=== PATIENT | female | born 1990 | race Caucasian/White ===

== ENCOUNTER 2016-09-21 05:39 | Emergency (ER) | payer MEDICAID ==
[~2016-09-21] VITALS: Ht 165.1 cm; Wt 65.0 kg
[~2016-09-21 05:39] MED LIST: ASCO500C PO; FISH100020 PO; FOLI1 PO; PRENCAP6 PO; VITA10004 PO
[2016-09-21 05:42] VITALS: BP 123/73; PULSE 91; RESP 16; TEMP 97.9; O2SAT 100
[2016-09-21] MEDS ORDERED: SODIUM CHLOR 0.9% 1000 ML INJ 1,000 ML IV SCH (06:27)
[2016-09-21] MEDS ORDERED: SODIUM CHLORIDE 0.9% FLUSH 5 ML FLUSH IVF PRN (06:30)
[2016-09-21] MEDS ORDERED: MORPHINE SULFATE 4 MG/ML INJ IV PUSH ONE (06:30)
[2016-09-21] MEDS ORDERED: ONDANSETRON HCL 4 MG/2 ML VIAL IVP ONE (06:30)
--- NOTE | 2016-09-21 06:37 | PD ---
HPI Chief Complaint: Abdominal Pain Time Seen by Provider: 06:24 Travel History International Travel<30 days: No Contact w/Intl Traveler<30days: No Traveled to known affect area: No History of Present Illness HPI 26-year-old female with history of bilateral fallopian tube coils for sterilization placed in July 2016, here for evaluation of right lower quadrant abdominal pain and vaginal bleeding stating that she is passing grape- sized clots. Symptoms started this morning. Right lower quadrant abdominal pain is sharp/achy, constant, moderate, worse with movement and palpation. No history of abdominal surgeries. No vaginal discharge of the bleeding. No urinary symptoms. No fevers or chills. 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) Medical other: Yes (MTHFR (gene mutation)) Tetanus Vaccination: Unknown Influenza Vaccination: Yes ?: Not LMP: 08/31/2015 : 11 Para: 2 Miscarriage: 9 Past Surgical History Gynecologic Surgery: Yes (coils in falopian tubes) Social History Alcohol Use: Yes (occasionally) Tobacco Use: Yes (2 cigarettes per day) Substance Use: No Allergies-Medications (Allergen,Severity, Reaction): Coded Allergies: Codeine (Verified Allergy, Unknown, 02/27/16) Reported Meds & Prescriptions Reported Meds & Active Scripts Active Reported Vitamin C (Ascorbic Acid) 500 Mg Cap 500 Mg PO DAILY Fish Oil (Humble-3 Fatty Acids) 1,000 Mg Cap 1,000 Mg PO DAILY Folate 1 Mg Tab (Folic Acid) 1 Mg Tab 1 Mg PO DAILY Vitamin B-12 Cr (Cyanocobalamin) 1 000 Tab 1 Tab PO DAILY 1 ( Multivitamins) Cap 1 Cap PO DAILY Review of Systems Except as stated in HPI: all other systems reviewed are Neg Physical Exam Narrative GENERAL: Well-developed, well-nourished, no acute distress. SKIN: Warm and dry. No rash. HEAD: Atraumatic. Normocephalic. EYES: Pupils equal and round. No scleral icterus. No injection or drainage. ENT: Mucous membranes pink and moist. NECK: Trachea midline. No JVD. CARDIOVASCULAR: Regular rate and rhythm. RESPIRATORY: No accessory muscle use. Clear to auscultation. Breath sounds equal bilaterally. GASTROINTESTINAL: Abdomen soft, nondistended. Moderate right lower quadrant tenderness without rebound or guarding. Mild suprapubic and left lower quadrant tenderness without peritoneal signs. Rest of abdomen is soft and nontender. AUDIO TECHNICIAN: Exam performed in the presence of female nurse. Normal external genitalia. Scant whitish vaginal discharge that is [id number]. Normal cervix. Moderate right adnexal tenderness without masses. Moderate uterine tenderness. No CMT. No left adnexal masses or tenderness. MUSCULOSKELETAL: No obvious deformities. No clubbing. No cyanosis. No edema. NEUROLOGICAL: Awake and alert. No obvious cranial nerve deficits. Motor grossly within normal limits. Normal speech. PSYCHIATRIC: Appropriate mood and affect; insight and judgment normal. Data Data Last Documented VS Vital Signs Date Time Temp Pulse Resp B/P Pulse Ox O2 Delivery O2 Flow Rate FiO2 09/21/16 05:42 97.9 91 16 123/73 100 Room Air Orders Beta Hcg (Quant/Titer) (09/21/16 06:27) Complete Blood Count With Diff (09/21/16 06:27) Comprehensive Metabolic Panel (09/21/16 06:27) Prothrombin Time / Inr (Pt) (09/21/16 06:27) Act Partial Throm Time (Ptt) (09/21/16 06:27) Urinalysis - C+S If Indicated (09/21/16 06:27) Ct Abd/Pel W Iv Contrast(Rout) (09/21/16 06:27) Iv Access Insert/Monitor (09/21/16 06:27) Ecg Monitoring (09/21/16 06:27) Oximetry (09/21/16 06:27) Morphine Inj (Morphine Inj) (09/21/16 06:30) Ondansetron Inj (Zofran Inj) (09/21/16 06:30) Sodium Chlor 0.9% 1000 Ml Inj (Ns 1000 M (09/21/16 06:27) Sodium Chloride 0.9% Flush (Ns Flush) (09/21/16 06:30) Gc And Chlamydia Pcr (09/21/16 06:27) Type And Screen (09/21/16 06:27) Wet Prep Profile (09/21/16 06:27) Labs Laboratory Tests Test 09/21/16 06:35 White Blood Count 8.2 TH/MM3 Red Blood Count 4.32 MIL/MM3 Hemoglobin 13.3 GM/DL Hematocrit 39.8 % Mean Corpuscular Volume 92.1 FL Mean Corpuscular Hemoglobin 30.7 PG Mean Corpuscular Hemoglobin 33.4 % Concent Red Cell Distribution Width 14.9 % Platelet Count 364 TH/MM3 Mean Platelet Volume 7.7 FL Neutrophils (%) (Auto) 64.9 % Lymphocytes (%) (Auto) 22.4 % Monocytes (%) (Auto) 10.0 % Eosinophils (%) (Auto) 2.2 % Basophils (%) (Auto) 0.5 % Neutrophils # (Auto) 5.3 TH/MM3 Lymphocytes # (Auto) 1.8 TH/MM3 Monocytes # (Auto) 0.8 TH/MM3 Eosinophils # (Auto) 0.2 TH/MM3 Basophils # (Auto) 0.0 TH/MM3 CBC Comment DIFF FINAL Differential Comment MDM Medical Decision Making Medical Screen Exam Complete: Yes Emergency Medical Condition: Yes Differential Diagnosis Appendicitis, ectopic , ovarian cyst, ovarian torsion, PID, menstrual cramping, Narrative Course At approximately 7:00 AM at the end of my shift the patient was signed out to Dr. Hernandez who will follow up with labs, CT abdomen pelvis, and will disposition the patient appropriately. Kyle Gutierrez MD Sep 21, 2016 06:37
[2016-09-21 06:53] LABS: AUTOMATED NEUTROPHIL # 5.3 TH/MM3 (1.8-7.7); BASOPHIL % 0.5 % (0.0-2.0); EOSINOPHIL # 0.2 TH/MM3 (0-0.4); EOSINOPHIL % 2.2 % (0.0-4.0); HEMATOCRIT 39.8 % (35.0-46.0); HEMO FLAGS DIFF FINAL; LYMPH % 22.4 % (9.0-44.0); LYMPHOCYTE # 1.8 TH/MM3 (1.0-4.8); MEAN CELL VOLUME 92.1 FL (80.0-100.0); MEAN CORPUSCULAR HEMOGLOBIN 30.7 PG (27.0-34.0); MEAN CORPUSCULAR HGB CONC 33.4 % (32.0-36.0); NEUT % 64.9 % (16.0-70.0); PLATELET COUNT 364 TH/MM3 (150-450); RED BLOOD COUNT 4.32 MIL/MM3 (4.00-5.30); RED CELL DISTRIBUTION WIDTH 14.9 % (11.6-17.2); WHITE BLOOD COUNT 8.2 TH/MM3 (4.0-11.0)
[2016-09-21 07:07] LABS: APTT (PATIENT) 29.2 SEC (24.3-30.1); INTERNATIONAL NORMALIZED RATIO 0.9 RATIO; PROTHROMBIN TIME - PATIENT 10.3 SEC (9.8-11.6)
[2016-09-21 07:17] LABS: ALT (GPT) 26 U/L (10-53); ANION GAP 9 MEQ/L (5-15); AST (GOT) 20 U/L (15-37); BICARBONATE 25.2 MEQ/L (21.0-32.0); BLOOD UREA NITROGEN 15 MG/DL (7-18); CHLORIDE 106 MEQ/L (98-107); GLOMERULAR FILTRATION RATE 87 ML/MIN (>89); POTASSIUM 4.3 MEQ/L (3.5-5.1); SODIUM (NA) 140 MEQ/L (136-145)
[2016-09-21 07:20] LABS: ALKALINE PHOSPHATASE 85 U/L (45-117); BETA HCG QUANT LESS THAN 1 MIU/ML (0-5); TOTAL BILIRUBIN ADULT 0.3 MG/DL (0.2-1.0)
--- NOTE | 2016-09-21 08:06 | RADRPT ---
EXAM DATE/TIME: 09/21/2016 07:45 [facility] COMPARISON: No previous studies available for comparison. INDICATIONS : Lower right abdomen pain, vaginal bleeding. IV CONTRAST: 69 cc Omnipaque 350 (iohexol) IV ORAL CONTRAST: No oral contrast ingested. RADIATION DOSE: 9.24 CTDIvol (mGy) MEDICAL HISTORY : None SURGICAL HISTORY : None. ENCOUNTER: Initial ACUITY: 1 day PAIN SCALE: 5/10 LOCATION: abdomen TECHNIQUE: Volumetric scanning of the abdomen and pelvis was performed. Using automated exposure control and ad justment of the mA and/or kV according to patient size, radiation dose was kept as low as reasonably achievable to obtain optimal diagnostic quality images. FINDINGS: LOWER LUNGS: The visualized lower lungs are clear. LIVER: Homogeneous density without lesion. There is no dilation of the biliary tree. No calcified gallston es. SPLEEN: Normal size without lesion. PANCREAS: Within normal limits. KIDNEYS: Normal in size and shape. There is no mass, stone or hydronephrosis. ADRENAL GLANDS: Within normal limits. VASCULAR: There is no aortic aneurysm. BOWEL/MESENTERY: The stomach, small bowel, and colon demonstrate no acute abnormality. There is no free intraperitone al air or fluid. The appendix and terminal ileum are normal. ABDOMINAL WALL: Within normal limits. RETROPERITONEUM: There is no lymphadenopathy. BLADDER: No wall thickening or mass. REPRODUCTIVE: Within normal limits. There are fallopian tube embolization coils bilaterally. A cystic lesion is pre sent in the left ovary measuring 19 mm consistent with a normal functional cyst/follicle. INGUINAL: There is no lymphadenopathy or hernia. MUSCULOSKELETAL: Within normal limits for patient age. CONCLUSION: 1. No abnormality is identified to explain the clinical symptoms. The appendix is normal. 2. Fallopian tube embolization coils are present bilaterally. Riky Cavanaugh MD on September 21, 2016 at 8:01 Board Certified Radiologist. This report was verified electronically.
--- NOTE | 2016-09-21 08:21 | PD ---
Physical Exam Narrative GENERAL: Well-nourished, well-developed patient. Uncomfortable SKIN: Warm and dry. HEAD: Normocephalic and atraumatic. EYES: No injection or drainage. ENT: No nasal drainage noted. NECK: Supple, trachea midline. CARDIOVASCULAR: Regular rate and rhythm RESPIRATORY: No increased effort. No accessory muscle use. GASTROINTESTINAL: Abdomen soft, tender right lower pelvis, nondistended. No rebound or guarding NEUROLOGICAL: Awake and alert. Motor and sensory grossly within normal limits. Normal speech. Data Data Last Documented VS Vital Signs Date Time Temp Pulse Resp B/P Pulse Ox O2 Delivery O2 Flow Rate FiO2 09/21/16 05:42 97.9 91 16 123/73 100 Room Air Orders Beta Hcg (Quant/Titer) (09/21/16 06:27) Complete Blood Count With Diff (09/21/16 06:27) Comprehensive Metabolic Panel (09/21/16 06:27) Prothrombin Time / Inr (Pt) (09/21/16 06:27) Act Partial Throm Time (Ptt) (09/21/16 06:27) Urinalysis - C+S If Indicated (09/21/16 06:27) Ct Abd/Pel W Iv Contrast(Rout) (09/21/16 06:27) Iv Access Insert/Monitor (09/21/16 06:27) Ecg Monitoring (09/21/16 06:27) Oximetry (09/21/16 06:27) Morphine Inj (Morphine Inj) (09/21/16 06:30) Ondansetron Inj (Zofran Inj) (09/21/16 06:30) Sodium Chlor 0.9% 1000 Ml Inj (Ns 1000 M (09/21/16 06:27) Sodium Chloride 0.9% Flush (Ns Flush) (09/21/16 06:30) Gc And Chlamydia Pcr (09/21/16 06:27) Type And Screen (09/21/16 06:27) Wet Prep Profile (09/21/16 06:27) Us Pelvis Comp Director Quality Assurance/Non-Preg (09/21/16 08:17) Ketorolac Inj (Toradol Inj) (09/21/16 08:30) Iohexol 350 Inj (Omnipaque 350 Inj) (09/21/16 08:26) Labs Laboratory Tests Test 109/21/16 09/21/16 06:35 06:50 10:00 White Blood Count 8.2 TH/MM3 Red Blood Count 4.32 MIL/MM3 Hemoglobin 13.3 GM/DL Hematocrit 39.8 % Mean Corpuscular Volume 92.1 FL Mean Corpuscular Hemoglobin 30.7 PG Mean Corpuscular Hemoglobin 33.4 % Concent Red Cell Distribution Width 14.9 % Platelet Count 364 TH/MM3 Mean Platelet Volume 7.7 FL Neutrophils (%) (Auto) 64.9 % Lymphocytes (%) (Auto) 22.4 % Monocytes (%) (Auto) 10.0 % Eosinophils (%) (Auto) 2.2 % Basophils (%) (Auto) 0.5 % Neutrophils # (Auto) 5.3 TH/MM3 Lymphocytes # (Auto) 1.8 TH/MM3 Monocytes # (Auto) 0.8 TH/MM3 Eosinophils # (Auto) 0.2 TH/MM3 Basophils # (Auto) 0.0 TH/MM3 CBC Comment DIFF FINAL Differential Comment Prothrombin Time 10.3 SEC Prothromb Time International 0.9 RATIO Ratio Activated Partial 29.2 SEC Thromboplast Time Sodium Level 140 MEQ/L Potassium Level 4.3 MEQ/L Chloride Level 106 MEQ/L Carbon Dioxide Level 25.2 MEQ/L Anion Gap 9 MEQ/L Blood Urea Nitrogen 15 MG/DL Creatinine 0.80 MG/DL Estimat Glomerular Filtration 87 ML/MIN Rate Random Glucose 94 MG/DL Calcium Level 8.7 MG/DL Total Bilirubin 0.3 MG/DL Aspartate Amino Transf 20 U/L (AST/SGOT) Alanine Aminotransferase 26 U/L (ALT/SGPT) Alkaline Phosphatase 85 U/L Total Protein 8.2 GM/DL Albumin 4.2 GM/DL Human Chorionic Gonadotropin, LESS THAN 1 Quant MIU/ML Blood Type O POSITIVE Antibody Screen NEGATIVE Clue Cells (Wet Prep) NONE SEEN Vaginal Trichomonas (Wet Prep) NONE SEEN Vaginal Yeast (Wet Prep) NONE SEEN Chlamydia trachomatis DNA NOT DETECTED (PCR) Neisseria gonorrhoeae DNA NOT DETECTED (PCR) Urine Color LIGHT-YELLOW Urine Turbidity CLEAR Urine pH 6.5 Urine Specific [place] 1.009 Urine Protein NEG mg/dL Urine Glucose (UA) NEG mg/dL Urine Ketones NEG mg/dL Urine Occult Blood NEG Urine Nitrite NEG Urine Bilirubin NEG Urine Urobilinogen LESS THAN 2.0 MG/DL Urine Leukocyte Esterase NEG Urine RBC LESS THAN 1 /hpf Urine WBC 2 /hpf Urine Squamous Epithelial 2 /hpf Cells Urine Transitional Epithelial 1 /hpf Cells Microscopic Urinalysis Comment CULT NOT INDICATED MDM Supervised Visit with WILBERT: No Interpretation(s) CBC & BMP Diagram 09/21/16 06:35 Last 24 hours Impressions Abdomen/Pelvis CT 09/21/1627 Signed Impressions: Service Date/Time: Wednesday, September 21, 2016 07:45 - CONCLUSION: 1. No abnormality is identified to explain the clinical symptoms. The appendix is normal. 2. Fallopian tube embolization coils are present bilaterally. Riky Cavanaugh MD Narrative Course Signed over to me to follow CAT scan and if negative proceed with pelvic ultrasound for further evaluation. Patient updated the CAT scan was negative and agrees to proceed with pelvic ultrasound and currently does not have group manager for follow-up as she stopped seeing doctor olga when he placed the coils which she states she did not want ultrasound no acute, Patient denies any new complaints, all questions answered. Patient knows that follow up is incumbent on them and to return to the emergency room immediately if new or worsening symptoms develop. Patient given strict return precautions, vitals reviewed and are normal, agrees to further workup as an outpatient. Diagnosis Primary Impression: Abdominal pain Qualified Code: R10.31 - Right lower quadrant abdominal pain Patient Instructions: General Instructions Additional Instruction: return as needed, tylenol as needed, set up a group manager Med/Other Pt SpecificInfo: No Change to Meds Disposition: 01 DISCHARGE HOME Condition: Stable Aliya Hernandez MD Sep 21, 2016 08:21
[2016-09-21] MEDS ORDERED: IOHEXOL 350 MG/ML 10 ML VIAL (for RAD DIAG) IV ONE (08:26)
[2016-09-21] MEDS ORDERED: KETOROLAC TROMETHAMINE 30 MG/ML (IVP) VIAL IV PUSH ONE (08:30)
--- NOTE | 2016-09-21 09:52 | RADRPT ---
EXAM DATE/TIME: 09/21/2016 08:52 [facility] COMPARISON: CT ABDOMEN & PELVIS W CONTRAST, September 21, 2016, 7:45. INDICATIONS : Pelvic pain after bilateral fallopian tube coils placed. MEDICAL HISTORY : Deaf in left ear. SURGICAL HISTORY : Bilateral fallopian tube coils 07/28/16. ENCOUNTER: Initial ACUITY: 2 months PAIN SCORE: 9/10 LOCATION: Right and midline pelvis. MEASUREMENTS: UTERUS: 10.0 x 4.4 x 6.8 cm ENDOMETRIAL STRIPE: 6 mm RIGHT OVARY: 3.2 x 2.0 x 2.2 cm LEFT OVARY: 4.4 x 3.6 x 2.4 cm FINDINGS: UTERUS: The myometrium has homogeneous echotexture without mass. The central aspect of the fallopian tube no rmalization coils are visualized in the myometrial segment of the fallopian tubes. They appear in maryam ropriate position. RIGHT OVARY: Ovary contains no mass or significant cystic lesion. Blood flow is documented. LEFT OVARY: Ovary contains no mass or significant cystic lesion. Blood flow is documented. There is a simple cys tic lesion/follicle measuring approximately 2.2 cm. MISCELLANEOUS: No free fluid. CONCLUSION: 1. Normal transabdominal pelvis ultrasound. Bilateral fallopian tube embolization coils are visualize d. They appear in appropriate position. 2. Ovaries have a normal appearance. Riky Cavanaugh MD on September 21, 2016 at 9:48 Board Certified Radiologist. This report was verified electronically.
[2016-09-21 10:26] LABS: BLOOD, URINE NEG (NEG); GLUCOSE,URINE NEG (NEG); KETONE, URINE NEG (NEG); NITRITE,URINE NEG (NEG); PH, URINE 6.5 (5.0-8.5); SQUAMOUS EPITHELIAL CELL URINE 2 /hpf (0-5); TRANSITIONAL EPI CELLS, URINE 1 /hpf; URINE COLOR LIGHT-YELLOW (YELLW/STRAW)
[2016-09-21 10:27] LABS: COMMENT (UR) CULT NOT INDICATED; CULTURE IF INDICATED CULT NOT INDICATED
[2016-09-21 10:36] LABS: CHLAMYDIA PCR NOT DETECTED (NOT DETECT); NEISSERIA PCR NOT DETECTED (NOT DETECT)
[2016-12-01] MEDS ORDERED: ACET1CAP18 PO (09:38)
[2016-12-01] MEDS ORDERED: IBUP800T23 PO (09:38)
[2016-12-01] MEDS ORDERED: IMIT25TA PO (10:27)
[2016-12-01] MEDS ORDERED: RANI150T PO (10:32)
[2017-02-12] MEDS ORDERED: BUTA1CAP PO (10:44)
[2017-02-12] MEDS ORDERED: RANI150C PO (10:44)
[2017-02-12] MEDS ORDERED: TOPA50TA7 PO (10:44)
== END 2016-09-21 13:00 | disposition home or self-care (01) ==
LOC: NEPC 05:39
DX: R10.31 Right lower quadrant pain (principal); F17.210 Nicotine dependence, cigarettes, uncomplicated; N93.9 Abnormal uterine and vaginal bleeding, unspecified
CPT/HCPCS: 74177; 76856; 80053; 81001; 84702; 85025; 85610; 85730; 86850; 86900; 86901; 87210; 87491; 87591; 96374; 96375; 99284; J1885; J2270; J2405; J7030; Q9967

== ENCOUNTER 2016-11-20 11:01 | Emergency (ER) | payer MEDICAID ==
[~2016-11-20] VITALS: Ht 160 cm; Wt 81.0 kg
[2016-11-20 11:07] VITALS: BP 119/82; PULSE 97; RESP 18; TEMP 100.2; O2SAT 100
[2016-11-20] MEDS ORDERED: BUTA1CAP PO (11:09)
[2016-11-20 11:29] LABS: BLOOD, URINE SMALL (NEG); GLUCOSE,URINE NEG (NEG); KETONE, URINE TRACE mg/dL (NEG); NITRITE,URINE NEG (NEG)
[2016-11-20 11:33] LABS: COMMENT (UR) CULT NOT INDICATED; CULTURE IF INDICATED CULT NOT INDICATED; METHOD OF COLLECTION CLEAN CATCH; RBC, URINE 0-3 /hpf (0-3); URINE COLOR STRAW (YELLW/STRAW)
[2016-11-20] MEDS ORDERED: SODIUM CHLOR 0.9% 1000 ML INJ 1,000 ML IV SCH (11:54)
[2016-11-20] MEDS ORDERED: SODIUM CHLORIDE 0.9% FLUSH 10 ML FLUSH IV FLUSH PRN (12:00)
[2016-11-20] MEDS ORDERED: MORPHINE SULFATE 4 MG/ML INJ IV PUSH ONE ×2 (12:00→13:30)
--- NOTE | 2016-11-20 12:00 | PD ---
HPI Chief Complaint: Abdominal Pain Time Seen by Provider: 11:50 Travel History International Travel<30 days: No Contact w/Intl Traveler<30days: No Traveled to known affect area: No History of Present Illness HPI 26-year-old female who has a history of bilateral fallopian tubal coils which caused her pain which were subsequently removed by having bilateral fallopian tube removal by Dr. Singer last month, here for evaluation of right lower quadrant abdominal pain. Patient reports that the pain started this morning. Pain is described as stabbing, severe, constant, associated with nausea but no vomiting. No diarrhea. No pain anywhere else. No fevers or chills. No vaginal bleeding or discharge. No urinary symptoms. 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) Medical other: Yes (MTHFR) Migraines: Yes Tetanus Vaccination: > 5 Years Influenza Vaccination: Yes ?: Not : 11 Para: 2 Miscarriage: 9 Past Surgical History Gynecologic Surgery: Yes (coils in falopian tubes) Social History Alcohol Use: Yes (occasionally) Tobacco Use: Yes (2 cigarettes per day) Substance Use: No Allergies-Medications (Allergen,Severity, Reaction): Coded Allergies: Codeine (Verified Allergy, Unknown, 11/20/16) Reported Meds & Prescriptions Reported Meds & Active Scripts Active Reported Fioricet (Gecckngbxf-Zxcorqdcorcfr-Jbnhyjcn) 50-300-40 Mg Cap 1 Cap PO Q4H PRN Review of Systems Except as stated in HPI: all other systems reviewed are Neg Physical Exam Narrative GENERAL: Well-developed, well-nourished, tearful, no acute distress. SKIN: Warm and dry. No rash. Well-healed surgical scars over bilateral abdomen /pelvis. HEAD: Atraumatic. Normocephalic. EYES: Pupils equal and round. No scleral icterus. No injection or drainage. ENT: Mucous membranes pink and moist. CARDIOVASCULAR: Regular rate and rhythm. RESPIRATORY: No accessory muscle use. Clear to auscultation. Breath sounds equal bilaterally. GASTROINTESTINAL: Abdomen soft, nondistended. Mild right lower quadrant tenderness without peritoneal signs. The rest of her abdomen is soft and nontender. Normal bowel sounds. ELECTRICAL ELECTRONICS TECHNICIAN: Exam performed in the presence of a female nurse. Normal external genitalia. Scant whitish/llk-skro-[id number] vaginal discharge. Right adnexal tenderness without mass. Mild uterine tenderness. No CMT. No left adnexal mass or tenderness. MUSCULOSKELETAL: No obvious deformities. No clubbing. No cyanosis. No edema. NEUROLOGICAL: Awake and alert. No obvious cranial nerve deficits. Motor grossly within normal limits. Normal speech. Data Data Last Documented VS Vital Signs Date Time Temp Pulse Resp B/P Pulse Ox O2 Delivery O2 Flow Rate FiO2 11/20/16 13:00 92 18 123/66 99 Room Air 11/20/16 11:07 100.2 Orders Urinalysis - C+S If Indicated (11/20/16 11:12) Ed Urine Pregnancytest Poc (11/20/16 11:22) Beta Hcg (Quant/Titer) (11/20/16 11:54) Complete Blood Count With Diff (11/20/16 11:54) Comprehensive Metabolic Panel (11/20/16 11:54) Prothrombin Time / Inr (Pt) (11/20/16 11:54) Act Partial Throm Time (Ptt) (11/20/16 11:54) Ct Abd/Pel W Iv Contrast(Rout) (11/20/16 11:54) Iv Access Insert/Monitor (11/20/16 11:54) Ecg Monitoring (11/20/16 11:54) Oximetry (11/20/16 11:54) Morphine Inj (Morphine Inj) (11/20/16 12:00) Sodium Chlor 0.9% 1000 Ml Inj (Ns 1000 M (11/20/16 11:54) Sodium Chloride 0.9% Flush (Ns Flush) (11/20/16 12:00) Us Pelvis Comp Domestic Violence Advocate/Non-Preg (11/20/16 ) Labs Laboratory Tests Test 11/20/16 11/20/16 11:15 12:07 Urine Collection Type CLEAN CATCH Urine Color STRAW Urine Turbidity CLOUDY Urine pH 6.0 Urine Specific [place] 1.016 Urine Protein NEG mg/dL Urine Glucose (UA) NEG mg/dL Urine Ketones TRACE mg/dL Urine Occult Blood SMALL Urine Nitrite NEG Urine Bilirubin NEG Urine Leukocyte Esterase NEG Urine RBC 0-3 /hpf Urine Squamous Epithelial 6-8 /hpf Cells Microscopic Urinalysis Comment CULT NOT INDICATED White Blood Count 14.2 TH/MM3 Red Blood Count 3.92 MIL/MM3 Hemoglobin 12.4 GM/DL Hematocrit 36.7 % Mean Corpuscular Volume 93.7 FL Mean Corpuscular Hemoglobin 31.6 PG Mean Corpuscular Hemoglobin 33.7 % Concent Red Cell Distribution Width 12.7 % Platelet Count 294 TH/MM3 Mean Platelet Volume 7.2 FL Neutrophils (%) (Auto) 89.2 % Lymphocytes (%) (Auto) 3.7 % Monocytes (%) (Auto) 6.5 % Eosinophils (%) (Auto) 0.3 % Basophils (%) (Auto) 0.3 % Neutrophils # (Auto) 12.8 TH/MM3 Lymphocytes # (Auto) 0.5 TH/MM3 Monocytes # (Auto) 0.9 TH/MM3 Eosinophils # (Auto) 0.0 TH/MM3 Basophils # (Auto) 0.0 TH/MM3 CBC Comment DIFF FINAL Differential Comment Prothrombin Time 10.6 SEC Prothromb Time International 1.0 RATIO Ratio Activated Partial 25.9 SEC Thromboplast Time Sodium Level 140 MEQ/L Potassium Level 3.9 MEQ/L Chloride Level 104 MEQ/L Carbon Dioxide Level 26.9 MEQ/L Anion Gap 9 MEQ/L Blood Urea Nitrogen 8 MG/DL Creatinine 0.71 MG/DL Estimat Glomerular Filtration 100 ML/MIN Rate Random Glucose 129 MG/DL Calcium Level 8.2 MG/DL Total Bilirubin 0.2 MG/DL Aspartate Amino Transf 17 U/L (AST/SGOT) Alanine Aminotransferase 24 U/L (ALT/SGPT) Alkaline Phosphatase 92 U/L Total Protein 7.4 GM/DL Albumin 3.7 GM/DL Human Chorionic Gonadotropin, LESS THAN 1 Quant MIU/ML MDM Medical Decision Making Medical Screen Exam Complete: Yes Emergency Medical Condition: Yes Medical Record Reviewed: Yes Differential Diagnosis Ovarian cyst, ovarian torsion, appendicitis, UTI, cystitis, adhesions, PID Narrative Course Vital signs show heart rate 97, blood pressure 119/82, pulse ox 100% on room air , oral temp of 100.2F. CBC shows WBC 14.2, hemoglobin 12.4, hematocrit 36.7, platelets 294, neutrophils 89%. CMP is unremarkable. Beta hCG is negative. UA shows cloudy urine, trace ketones, small occult blood, 6-8 squamous epithelial cells. At approximately 1:00 PM at the end of my shift the patient was signed out to Dr. Villagomez who will follow-up with imaging and will disposition the patient. Kyle Gutierrez MD Nov 20, 2016 12:00
[2016-11-20 12:10] VITALS: O2SAT 100
[2016-11-20 12:15] LABS: AUTOMATED NEUTROPHIL # 12.8 TH/MM3 (1.8-7.7); BASOPHIL % 0.3 % (0.0-2.0); EOSINOPHIL % 0.3 % (0.0-4.0); HEMATOCRIT 36.7 % (35.0-46.0); HEMO FLAGS DIFF FINAL; LYMPH % 3.7 % (9.0-44.0); LYMPHOCYTE # 0.5 TH/MM3 (1.0-4.8); MEAN CELL VOLUME 93.7 FL (80.0-100.0); MEAN CORPUSCULAR HEMOGLOBIN 31.6 PG (27.0-34.0); MEAN CORPUSCULAR HGB CONC 33.7 % (32.0-36.0); MONO % 6.5 % (0.0-8.0); NEUT % 89.2 % (16.0-70.0); PLATELET COUNT 294 TH/MM3 (150-450); RED BLOOD COUNT 3.92 MIL/MM3 (4.00-5.30); RED CELL DISTRIBUTION WIDTH 12.7 % (11.6-17.2); WHITE BLOOD COUNT 14.2 TH/MM3 (4.0-11.0)
[2016-11-20 12:26] LABS: CHLORIDE 104 MEQ/L (98-107); POTASSIUM 3.9 MEQ/L (3.5-5.1); SODIUM (NA) 140 MEQ/L (136-145)
[2016-11-20 12:29] LABS: ANION GAP 9 MEQ/L (5-15); BICARBONATE 26.9 MEQ/L (21.0-32.0)
[2016-11-20 12:30] LABS: APTT (PATIENT) 25.9 SEC (24.3-30.1); BLOOD UREA NITROGEN 8 MG/DL (7-18); PROTHROMBIN TIME - PATIENT 10.6 SEC (9.8-11.6)
[2016-11-20 12:33] LABS: ALT (GPT) 24 U/L (10-53); AST (GOT) 17 U/L (15-37); GLOMERULAR FILTRATION RATE 100 ML/MIN (>89)
[2016-11-20 12:34] LABS: TOTAL BILIRUBIN ADULT 0.2 MG/DL (0.2-1.0)
[2016-11-20 12:35] LABS: ALKALINE PHOSPHATASE 92 U/L (45-117)
[2016-11-20 12:38] LABS: BETA HCG QUANT LESS THAN 1 MIU/ML (0-5)
[2016-11-20 13:00] VITALS: BP 123/66; PULSE 92; RESP 18; O2SAT 99
[2016-11-20] MEDS ORDERED: IOHEXOL 350 MG/ML 10 ML VIAL (for RAD DIAG) IV ONE (14:04)
--- NOTE | 2016-11-20 14:10 | RADHPO ---
EXAM DATE/TIME: 11/20/2016 13:30 [facility] COMPARISON: US PELVIS - COMPLETE (MANAGER FURNITURE,NON-PREG), September 21, 2016, 8:52. INDICATIONS : Right lower quadrant pain. MEDICAL HISTORY : Right lower quadrant pain. SURGICAL HISTORY : Fallopian tube coils 07/2016 and removal of last month. Bilateral salpingectomy. ENCOUNTER: Subsequent ACUITY: 1 day PAIN SCORE: 6/10 LOCATION: Bilateral pelvis MEASUREMENTS: UTERUS: 9.8 x 6.8 x 4.3 cm ENDOMETRIAL STRIPE: 8 mm RIGHT OVARY: 5.9 x 4.6 x 4.3 cm LEFT OVARY: 3.8 x 2.5 x 4.0 cm FINDINGS: UTERUS: The examination demonstrates there is increased echogenicity in the in the myometrial segment of fall opian tubes bilaterally suggesting embolization coils. The uterus is otherwise unremarkable in appear ance. RIGHT OVARY: The examination demonstrate a 1.9 x 1.2 x 1.2 cm complex cyst. This was not evident on previous study . LEFT OVARY: Ovary contains no mass or significant cystic lesion. MISCELLANEOUS: No free fluid. CONCLUSION: 1. There appear to be embolization coils in the myometrial segment of the fallopian tubes bilaterally . 2. Small ovarian cyst on the right. José Miguel Richter MD on November 20, 2016 at 14:03 Board Certified Radiologist. This report was verified electronically.
--- NOTE | 2016-11-20 14:32 | RADHPO ---
EXAM DATE/TIME: 11/20/2016 13:56 [facility] COMPARISON: CT ABDOMEN & PELVIS W CONTRAST, September 21, 2016, 7:45. INDICATIONS : Right lower quadrant pain. IV CONTRAST: 80 cc Omnipaque 350 (iohexol) IV ORAL CONTRAST: No oral contrast ingested. RADIATION DOSE: 12.19 CTDIvol (mGy) MEDICAL HISTORY : None SURGICAL HISTORY : Coils in fallopian tubes. ENCOUNTER: Initial ACUITY: 1 day PAIN SCALE: 5/10 LOCATION: Right lower quadrant TECHNIQUE: Volumetric scanning of the abdomen and pelvis was performed. Using automated exposure control and ad justment of the mA and/or kV according to patient size, radiation dose was kept as low as reasonably achievable to obtain optimal diagnostic quality images. FINDINGS: LOWER LUNGS: The visualized lower lungs are clear. LIVER: Homogeneous density without lesion. There is no dilation of the biliary tree. No calcified gallston es. SPLEEN: Normal size without lesion. PANCREAS: Within normal limits. KIDNEYS: Normal in size and shape. There is no mass, stone or hydronephrosis. ADRENAL GLANDS: Within normal limits. VASCULAR: There is no aortic aneurysm. BOWEL/MESENTERY: The stomach, small bowel, and colon demonstrate no acute abnormality. There is no free intraperitone al air or fluid. ABDOMINAL WALL: Within normal limits. RETROPERITONEUM: There is no lymphadenopathy. BLADDER: No wall thickening or mass. REPRODUCTIVE: There is evidence of a complex cystic right adnexal mass measuring 4.8 x 4.3 x 5.7 cm. There is free fluid within the cul-de-sac and right adnexal region. Fallopian tube coils are again identified bilat erally. INGUINAL: There is no lymphadenopathy or hernia. MUSCULOSKELETAL: Within normal limits for patient age. CONCLUSION: Complex cystic right adnexal mass measuring 4.8 x 4.2 x 5.7 cm with adjacent free flu id extending from the right adnexal region to the cul-de-sac. Srini Oneil MD on November 20, 2016 at 14:27 Board Certified Radiologist. This report was verified electronically.
--- NOTE | 2016-11-20 15:24 | PD ---
Data Data Last Documented VS Vital Signs Date Time Temp Pulse Resp B/P Pulse Ox O2 Delivery O2 Flow Rate FiO2 11/20/16 13:40 18 11/20/16 13:00 92 123/66 99 Room Air 11/20/16 11:07 100.2 Orders Urinalysis - C+S If Indicated (11/20/16 11:12) Ed Urine Pregnancytest Poc (11/20/16 11:22) Beta Hcg (Quant/Titer) (11/20/16 11:54) Complete Blood Count With Diff (11/20/16 11:54) Comprehensive Metabolic Panel (11/20/16 11:54) Prothrombin Time / Inr (Pt) (11/20/16 11:54) Act Partial Throm Time (Ptt) (11/20/16 11:54) Ct Abd/Pel W Iv Contrast(Rout) (11/20/16 11:54) Iv Access Insert/Monitor (11/20/16 11:54) Ecg Monitoring (11/20/16 11:54) Oximetry (11/20/16 11:54) Morphine Inj (Morphine Inj) (11/20/16 12:00) Sodium Chlor 0.9% 1000 Ml Inj (Ns 1000 M (11/20/16 11:54) Sodium Chloride 0.9% Flush (Ns Flush) (11/20/16 12:00) Morphine Inj (Morphine Inj) (11/20/16 13:30) Gc And Chlamydia Pcr (11/20/16 13:39) Wet Prep Profile (11/20/16 13:39) Us Pelvis Comp W Doppler (11/20/16 ) Iohexol 350 Inj (Omnipaque 350 Inj) (11/20/16 14:04) Labs Laboratory Tests Test 11/20/16 11/20/16 11/20/16 11:15 12:07 13:40 Urine Collection Type CLEAN CATCH Urine Color STRAW Urine Turbidity CLOUDY Urine pH 6.0 Urine Specific [place] 1.016 Urine Protein NEG mg/dL Urine Glucose (UA) NEG mg/dL Urine Ketones TRACE mg/dL Urine Occult Blood SMALL Urine Nitrite NEG Urine Bilirubin NEG Urine Leukocyte Esterase NEG Urine RBC 0-3 /hpf Urine Squamous Epithelial 6-8 /hpf Cells Microscopic Urinalysis Comment CULT NOT INDICATED White Blood Count 14.2 TH/MM3 Red Blood Count 3.92 MIL/MM3 Hemoglobin 12.4 GM/DL Hematocrit 36.7 % Mean Corpuscular Volume 93.7 FL Mean Corpuscular Hemoglobin 31.6 PG Mean Corpuscular Hemoglobin 33.7 % Concent Red Cell Distribution Width 12.7 % Platelet Count 294 TH/MM3 Mean Platelet Volume 7.2 FL Neutrophils (%) (Auto) 89.2 % Lymphocytes (%) (Auto) 3.7 % Monocytes (%) (Auto) 6.5 % Eosinophils (%) (Auto) 0.3 % Basophils (%) (Auto) 0.3 % Neutrophils # (Auto) 12.8 TH/MM3 Lymphocytes # (Auto) 0.5 TH/MM3 Monocytes # (Auto) 0.9 TH/MM3 Eosinophils # (Auto) 0.0 TH/MM3 Basophils # (Auto) 0.0 TH/MM3 CBC Comment DIFF FINAL Differential Comment Prothrombin Time 10.6 SEC Prothromb Time International 1.0 RATIO Ratio Activated Partial 25.9 SEC Thromboplast Time Sodium Level 140 MEQ/L Potassium Level 3.9 MEQ/L Chloride Level 104 MEQ/L Carbon Dioxide Level 26.9 MEQ/L Anion Gap 9 MEQ/L Blood Urea Nitrogen 8 MG/DL Creatinine 0.71 MG/DL Estimat Glomerular Filtration 100 ML/MIN Rate Random Glucose 129 MG/DL Calcium Level 8.2 MG/DL Total Bilirubin 0.2 MG/DL Aspartate Amino Transf 17 U/L (AST/SGOT) Alanine Aminotransferase 24 U/L (ALT/SGPT) Alkaline Phosphatase 92 U/L Total Protein 7.4 GM/DL Albumin 3.7 GM/DL Human Chorionic Gonadotropin, LESS THAN 1 Quant MIU/ML Clue Cells (Wet Prep) NONE SEEN Vaginal Trichomonas (Wet Prep) NONE SEEN Vaginal Yeast (Wet Prep) NONE SEEN MDM Supervised Visit with WILBERT: No Differential Diagnosis This patient is checked out to me by Dr. Gutierrez at 1 PM The patient was seen and examined in the presence of the nurse. She is here with right sided pelvic pain. Prior doctor did a pelvic exam and reported no evidence or clinical suspicion of PID. I reviewed the entirety of the workup with her and answered her questions. Urine is clean CBC shows minor nonspecific leukocytosis of 14,000 Metabolic studies are normal and beta negative Ultrasound shows coils in the fallopian tubes an ovarian cyst on the right but no evidence of torsion CT scan shows no evidence of colitis or appendicitis. There is a large right sided ovarian cyst noted Her abdomen is soft and benign. Vitals are normal other than a temp of 100 She is currently on amoxicillin for 3 days for flulike symptoms and that could be the source of her fever I wrote her some tramadol to use as needed for pain symptoms. Encouraged her to follow up with PRODUCT TRAINER physician to discuss all of her relevant PRODUCT TRAINER issues Advised her to return if she worsens. Stable for outpatient follow-up. Diagnosis Primary Impression: Pelvic pain Additional Impression: Right ovarian cyst Additional Instruction: The patient was advised to follow up with their PRODUCT TRAINER physician and return if they worsen. The patient was warned about potential sedation for the medications they will receive on prescription. Med/Other Pt SpecificInfo: Prescription(s) given Disposition: 01 DISCHARGE HOME Condition: Stable Moncho Villagomez MD Nov 20, 2016 15:24
[2016-11-20] MEDS ORDERED: TRAM50TA PO (15:26)
[2016-11-20 15:45] VITALS: BP 123/83; PULSE 91; RESP 18; O2SAT 99
[2016-11-20 19:05] LABS: CHLAMYDIA PCR NOT DETECTED (NOT DETECT); NEISSERIA PCR NOT DETECTED (NOT DETECT)
[2016-12-01] MEDS ORDERED: ACET1CAP18 PO (09:38)
[2016-12-01] MEDS ORDERED: IBUP800T23 PO (09:38)
[2016-12-01] MEDS ORDERED: IMIT25TA PO (10:27)
[2016-12-01] MEDS ORDERED: RANI150T PO (10:32)
[2017-02-12] MEDS ORDERED: TOPA50TA7 PO (10:44)
[2017-02-12] MEDS ORDERED: RANI150C PO (10:44)
[2017-02-12] MEDS ORDERED: BUTA1CAP PO (10:44)
[2017-02-27] MEDS ORDERED: HYDR50CA PO (11:18)
== END 2016-11-20 15:50 | disposition home or self-care (01) ==
LOC: PHED 11:01
DX: N83.201 Unspecified ovarian cyst, right side (principal)
CPT/HCPCS: 74177; 76856; 80053; 81001; 84702; 84703; 85025; 85610; 85730; 87210; 87491; 87591; 93975; 96361; 96374; 96376; 99284; J2270; J7030; Q9967

== ENCOUNTER 2016-12-08 14:43 | Emergency (ER) | payer MEDICAID ==
[~2016-12-08] VITALS: Ht 160 cm; Wt 77.0 kg
[~2016-12-08 14:43] MED LIST changes: +ACET1CAP18 PO; -ASCO500C PO; -FISH100020 PO; -FOLI1 PO; +IBUP800T23 PO; +IMIT25TA PO; -PRENCAP6 PO; +RANI150T PO; -VITA10004 PO
[2016-12-08 14:45] VITALS: BP 127/82; PULSE 84; RESP 16; TEMP 98.4; O2SAT 99
--- NOTE | 2016-12-08 15:30 | PD ---
HPI Chief Complaint: Abdominal Pain Time Seen by Provider: 15:30 Travel History International Travel<30 days: No Contact w/Intl Traveler<30days: No Traveled to known affect area: No History of Present Illness HPI 26-year-old female presents to the emergency department for evaluation of right lower quadrant abdominal pain. Patient reports chronic abdominal pain after she states she had coils in her fallopian tubes back in July. She states her room service clerk was Dr. Singer at [facility]. She states that she did not give permission police to replace that she thought she is having her tubes removed. She states that she went back to surgery in October to have the coils removed. However, at her recent visit here in October, she notes that the coils are still place. She states she will not follow back up with Dr. Singer due to having open lawsuit against him. She reports this pain is chronic since the original surgery in July. However, she states the pain is worsening. Patient was seen on November 20, 2016 pelvic ultrasound as well as CT abdomen/pelvis completed at that time. CT scan showed a complex cystic right adnexal mass measuring 4.8 x 4.2 x 5.7. She was instructed to follow up with her room service clerk. She states that she has a consultation on December 25 for hysterectomy. Patient states that her primary care physician cannot prescribe pain medication stating that "they lost their license for that". Patient denies any fevers or chills. She denies any chance of . She denies any other surgeries to her abdomen. 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) Migraines: Yes ?: Not LMP: 12/06/2016 : 11 Para: 2 Miscarriage: 9 Past Surgical History Gynecologic Surgery: Yes (coils in falopian tubes) Social History Alcohol Use: No Tobacco Use: Yes Substance Use: No Allergies-Medications (Allergen,Severity, Reaction): Coded Allergies: Codeine (Verified Allergy, Unknown, 12/08/16) Reported Meds & Prescriptions Reported Meds & Active Scripts Active Ranitidine (Ranitidine HCl) 150 Mg Tab 150 Mg PO HS Review of Systems Except as stated in HPI: all other systems reviewed are Neg Physical Exam Narrative GENERAL: Well-nourished, well-developed female patient, afebrile. SKIN: Focused skin assessment warm/dry. HEAD: Normocephalic. Atraumatic. EYES: No scleral icterus. No injection or drainage. NECK: Supple, trachea midline. No JVD or lymphadenopathy. CARDIOVASCULAR: Regular rate and rhythm without murmurs, gallops, or rubs. RESPIRATORY: Breath sounds equal bilaterally. No accessory muscle use. Lungs sounds are clear to auscultation. GASTROINTESTINAL: Abdomen soft and nondistended. Patient has tenderness over right lower quadrant. MUSCULOSKELETAL: No cyanosis, or edema. BACK: Nontender without obvious deformity. No CVA tenderness. Data Data Last Documented VS Vital Signs Date Time Temp Pulse Resp B/P Pulse Ox O2 Delivery O2 Flow Rate FiO2 12/08/16 14:59 12/08/16 14:45 98.4 84 16 99 Orders Us Pelvis Comp W Doppler (12/08/16 15:27) Urinalysis - C+S If Indicated (12/08/16 15:29) Ed Urine Pregnancytest Poc (12/08/16 15:29) Ketorolac Inj (Toradol Inj) (12/08/16 16:00) Labs Laboratory Tests Test 12/08/16 15:42 Urine Color COLORLESS Urine Turbidity HAZY Urine pH 5.5 Urine Specific [place] 1.010 Urine Protein NEG mg/dL Urine Glucose (UA) NEG mg/dL Urine Ketones NEG mg/dL Urine Occult Blood SMALL Urine Nitrite NEG Urine Bilirubin NEG Urine Urobilinogen LESS THAN 2.0 MG/DL Urine Leukocyte Esterase NEG Urine WBC 1 /hpf Urine Squamous Epithelial 5 /hpf Cells Urine Bacteria RARE /hpf Microscopic Urinalysis Comment CULT NOT INDICATED MDM Medical Decision Making Medical Screen Exam Complete: Yes Emergency Medical Condition: Yes Medical Record Reviewed: Yes Differential Diagnosis Ovarian cyst versus ovarian torsion versus UTI versus chronic pelvic pain Narrative Course 26-year-old female presents to the emergency department for evaluation of right lower quadrant pain that she has had since July when she had coils placed in her tubes. She states this is the same pain, but worsening. She had recent ultrasound and CT scan in October. I discussed the case with my attending physician, Dr. Walters, who recommends repeat ultrasound. In [place], it does appear that the patient gets frequent narcotic prescriptions. UA shows no evidence of acute infection. UPT is negative. Pelvic US shows no acute change. Patient is instructed to follow up with OPTICAL ENGINEERING MANAGER. She is to return for any acute, worsening of symptoms. The patient was discharged in stable condition with instructions, including return instructions and follow up instructions. Diagnosis Primary Impression: Pelvic pain Referrals: Motor Teacher 2 days Patient Instructions: General Instructions, Pelvic Pain (ED) Additional Instructions: Follow-up with room service clerk. Return to the emergency department for any acute worsening of symptoms. Med/Other Pt SpecificInfo: No Change to Meds Disposition: 01 DISCHARGE HOME Condition: Stable Shelley Martin Dec 08, 2016 15:30
[2016-12-08] MEDS ORDERED: KETOROLAC TROMETHAMINE 60 MG/2 ML (IM) VIAL IM ONE (16:00)
[2016-12-08 16:14] LABS: BACTERIA, URINE RARE /hpf; BLOOD, URINE SMALL (NEG); COMMENT (UR) CULT NOT INDICATED; CULTURE IF INDICATED CULT NOT INDICATED; GLUCOSE,URINE NEG (NEG); KETONE, URINE NEG (NEG); NITRITE,URINE NEG (NEG); PH, URINE 5.5 (5.0-8.5); SQUAMOUS EPITHELIAL CELL URINE 5 /hpf (0-5); URINE COLOR COLORLESS (YELLW/STRAW)
--- NOTE | 2016-12-08 16:29 | PD ---
Data Data Last Documented VS Vital Signs Date Time Temp Pulse Resp B/P Pulse Ox O2 Delivery O2 Flow Rate FiO2 12/08/16 14:59 12/08/16 14:45 98.4 84 16 99 Orders Us Pelvis Comp W Doppler (12/08/16 15:27) Urinalysis - C+S If Indicated (12/08/16 15:29) Ed Urine Pregnancytest Poc (12/08/16 15:29) Ketorolac Inj (Toradol Inj) (12/08/16 16:00) Labs Laboratory Tests Test 12/08/16 15:42 Urine Color COLORLESS Urine Turbidity HAZY Urine pH 5.5 Urine Specific [place] 1.010 Urine Protein NEG mg/dL Urine Glucose (UA) NEG mg/dL Urine Ketones NEG mg/dL Urine Occult Blood SMALL Urine Nitrite NEG Urine Bilirubin NEG Urine Urobilinogen LESS THAN 2.0 MG/DL Urine Leukocyte Esterase NEG Urine WBC 1 /hpf Urine Squamous Epithelial 5 /hpf Cells Urine Bacteria RARE /hpf Microscopic Urinalysis Comment CULT NOT INDICATED MDM Supervised Visit with WILBERT: Yes Narrative Course I, Dr. Walters, have reviewed the advance practice practioner's documentation and am in agreement, met with the patient face to face, made the diagnosis, and the medical decision making was done by me. *My assessment and Findings: 26-year-old female with right lower quadrant abdominal pain. Chronic abdominal pain related to "coils in my fallopian tube" . Patient states that she has a cyst of her right ovary and has some chronic pain in this area. She was seen here on 11/20 and had pelvic ultrasound and CT of the abdomen and pelvis showing said cyst. Otherwise negative. Patient has had increase in her pain, and her primary care physician would no longer prescribe her pain medications prompting ER visit. Exam shows right lower quadrant pelvic pain but overall benign without rebound or guarding. Differential includes acute on chronic pain, drug-seeking behavior, ovarian cyst , mass, torsion. Urinalysis and UPT was negative. Ultrasound shows chronic- appearing changes but no evidence of torsion. Patient reassured and discharged home in encouraged to follow up with outpatient VISUAL BASIC .NET DEVELOPER. Flori Walters MD Dec 08, 2016 16:29
--- NOTE | 2016-12-08 18:11 | RADRPT ---
EXAM DATE/TIME: 12/08/2016 15:56 [facility] COMPARISON: US PELVIS,COMP,W DOPPLER, November 20, 2016, 13:30. INDICATIONS : Pelvic pains since coils placed in fallopian tubes July 2016 MEDICAL HISTORY : Pelvic pain SURGICAL HISTORY : Fallopian tube coils. ENCOUNTER: Initial ACUITY: > 1 year PAIN SCORE: 3/10 LOCATION: Right pelvis MEASUREMENTS: UTERUS: 7.6 x 5.8 x 4.0 cm ENDOMETRIAL STRIPE: 6 mm RIGHT OVARY: 4.2 x 4.0 x 3.7 cm LEFT OVARY: 3.9 x 1.8 x 2.7 cm FINDINGS: UTERUS: The myometrium has homogeneous echotexture without mass. RIGHT OVARY: There is a 3 cm solid mass in the right adnexa region. LEFT OVARY: Ovary contains no mass or significant cystic lesion. MISCELLANEOUS: No free fluid. CONCLUSION: 3 cm solid mass right adnexa region. No other abnormalities appreciated.. Dick Richter MD FACR on December 08, 2016 at 18:08 Board Certified Radiologist. This report was verified electronically.
[2017-02-12] MEDS ORDERED: RANI150C PO (10:44)
[2017-02-12] MEDS ORDERED: TOPA50TA7 PO (10:44)
[2017-02-12] MEDS ORDERED: BUTA1CAP PO (10:44)
[2017-02-27] MEDS ORDERED: HYDR50CA PO (11:18)
== END 2016-12-08 16:40 | disposition home or self-care (01) ==
LOC: NEPD 14:43
DX: R10.2 Pelvic and perineal pain (principal); G89.29 Other chronic pain
CPT/HCPCS: 76856; 81001; 84703; 93975; 96372; 99284; J1885

== ENCOUNTER 2017-01-13 18:01 | Emergency (ER) | payer MEDICAID ==
[~2017-01-13 18:01] MED LIST changes: -ACET1CAP18 PO; -IBUP800T23 PO; -IMIT25TA PO
[2017-01-13 18:03] VITALS: BP 147/109; PULSE 98; RESP 16; TEMP 99.4; O2SAT 100
[2017-01-14] MEDS ORDERED: NORC5TAB PO (16:47)
[2017-02-12] MEDS ORDERED: BUTA1CAP PO (10:44)
[2017-02-12] MEDS ORDERED: RANI150C PO (10:44)
[2017-02-12] MEDS ORDERED: TOPA50TA7 PO (10:44)
[2017-02-27] MEDS ORDERED: HYDR50CA PO (11:18)
== END 2017-01-13 21:50 | disposition left against medical advice (07) ==
LOC: NED 18:01
DX: R68.89 Other general symptoms and signs (principal)
CPT/HCPCS: 99281

== ENCOUNTER 2017-01-14 13:43 | Emergency (ER) | payer MEDICAID ==
[~2017-01-14] VITALS: Ht 160 cm; Wt 77.0 kg
[2017-01-14 13:47] VITALS: BP 128/81; PULSE 87; RESP 16; TEMP 99.6; O2SAT 100
--- NOTE | 2017-01-14 14:05 | PD ---
HPI Chief Complaint: Abdominal Pain Time Seen by Provider: 13:56 Travel History International Travel<30 days: No Contact w/Intl Traveler<30days: No Traveled to known affect area: No History of Present Illness HPI The patient is a 26-year-old female who presents emergency department for pelvic pain. The patient states she underwent hysterectomy via laparoscopic and vaginal on January 06 by her industrial relations representative located in [place], [place]. The patient states she had previous coils placed into her fallopian tubes, however, she was having chronic pain and subsequently underwent hysterectomy. The patient states they did not remove her ovaries. The patient states she was lifting her son yesterday, who is 7 months old, when she felt a "pop" in the belly. The patient states she's had a small amount of blood-tinged leaking and fluid from the vagina as well as some lower pelvic pain. 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 She denies any nausea, vomiting, or upper abdominal pain. Symptoms are worse with movement and lifting, still present at rest. 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) Migraines: Yes ?: Not : 11 Para: 2 Miscarriage: 9 Past Surgical History Gynecologic Surgery: Yes (coils in falopian tubes) Hysterectomy: Yes (December) Social History Alcohol Use: No Tobacco Use: Yes Substance Use: No Allergies-Medications (Allergen,Severity, Reaction): Coded Allergies: Codeine (Verified Allergy, Unknown, 01/14/17) Reported Meds & Prescriptions Reported Meds & Active Scripts Active No Active Prescriptions or Reported Medications Review of Systems Except as stated in HPI: all other systems reviewed are Neg General / Constitutional: No: Fever Cardiovascular: No: Chest Pain or Discomfort Respiratory: No: Shortness of Breath Gastrointestinal: No: Nausea, Vomiting, Abdominal Pain Genitourinary: Positive: Pelvic Pain, Other (small amount of pink to clear colored fluid) Neurologic: No: Weakness, Dizziness Physical Exam Narrative GENERAL: Awake, alert, nontoxic-appearing 26 year-old female who appears her stated age and is in no acute respiratory distress. SKIN: Focused skin assessment warm/dry. HEAD: Atraumatic. Normocephalic. EYES: No injection or drainage. ENT: No nasal bleeding or discharge. Mucous membranes pink and moist. NECK: Trachea midline. No JVD. CARDIOVASCULAR: Regular rate and rhythm. No murmur appreciated. RESPIRATORY: No accessory muscle use. Clear to auscultation. Breath sounds equal bilaterally. GASTROINTESTINAL: Abdomen soft, left lower quadrant and right lower quadrant have incisional sites with sutures in place a small mount of ecchymosis. Mild tenderness and guarding but no rigidity. Pelvic: The exam was performed in the presence of a female nurse. External examination reveals no bleeding, drainage, or intestinal tissue. Speculum examination was painful to the patient, small amount of clear pink liquid, the vaginal cuff appeared intact, they did appear to be a suture line but no visible intestinal breech. MUSCULOSKELETAL: No obvious deformities. No clubbing. No cyanosis. No edema. NEUROLOGICAL: Awake and alert. No obvious cranial nerve deficits. Motor grossly within normal limits. Normal speech. PSYCHIATRIC: Appropriate mood and affect; insight and judgment normal. Data Data Last Documented VS Vital Signs Date Time Temp Pulse Resp B/P Pulse Ox O2 Delivery O2 Flow Rate FiO2 01/14/17 16:40 85 18 140/70 99 Room Air 01/14/17 13:47 99.6 Orders Complete Blood Count With Diff (01/14/17 14:11) Comprehensive Metabolic Panel (01/14/17 14:11) Urinalysis - C+S If Indicated (01/14/17 14:11) Ct Abd/Pel W/O Iv Contrast (01/14/17 14:11) Iv Access Insert/Monitor (01/14/17 14:11) Ecg Monitoring (01/14/17 14:11) Oximetry (01/14/17 14:11) Morphine Inj (Morphine Inj) (01/14/17 14:15) Ondansetron Inj (Zofran Inj) (01/14/17 14:15) Sodium Chlor 0.9% 1000 Ml Inj (Ns 1000 M (01/14/17 14:11) Sodium Chloride 0.9% Flush (Ns Flush) (01/14/17 14:15) Morphine Inj (Morphine Inj) (01/14/17 16:15) Ketorolac Inj (Toradol Inj) (01/14/17 16:15) Labs Laboratory Tests Test 01/14/17 14:23 White Blood Count 19.2 TH/MM3 Red Blood Count 4.03 MIL/MM3 Hemoglobin 12.5 GM/DL Hematocrit 37.5 % Mean Corpuscular Volume 93.1 FL Mean Corpuscular Hemoglobin 31.1 PG Mean Corpuscular Hemoglobin 33.4 % Concent Red Cell Distribution Width 13.0 % Platelet Count 405 TH/MM3 Mean Platelet Volume 8.1 FL Neutrophils (%) (Auto) 81.7 % Lymphocytes (%) (Auto) 9.8 % Monocytes (%) (Auto) 6.7 % Eosinophils (%) (Auto) 0.9 % Basophils (%) (Auto) 0.9 % Neutrophils # (Auto) 15.6 TH/MM3 Lymphocytes # (Auto) 1.9 TH/MM3 Monocytes # (Auto) 1.3 TH/MM3 Eosinophils # (Auto) 0.2 TH/MM3 Basophils # (Auto) 0.2 TH/MM3 CBC Comment DIFF FINAL Differential Comment Urine Collection Type CLEAN CATCH Urine Color YELLOW Urine Turbidity CLEAR Urine pH 5.5 Urine Specific [place] 1.012 Urine Protein NEG mg/dL Urine Glucose (UA) 250 mg/dL Urine Ketones NEG mg/dL Urine Occult Blood SMALL Urine Nitrite NEG Urine Bilirubin NEG Urine Leukocyte Esterase TRACE Urine RBC 0-3 /hpf Urine WBC 3-5 /hpf Urine Squamous Epithelial > 8 /hpf Cells Microscopic Urinalysis Comment CULT NOT INDICATED Urine Collection Time 14:23 Sodium Level 139 MEQ/L Potassium Level 3.8 MEQ/L Chloride Level 103 MEQ/L Carbon Dioxide Level 26.6 MEQ/L Anion Gap 9 MEQ/L Blood Urea Nitrogen 8 MG/DL Creatinine 0.67 MG/DL Estimat Glomerular Filtration 106 ML/MIN Rate Random Glucose 99 MG/DL Calcium Level 9.3 MG/DL Total Bilirubin 0.4 MG/DL Aspartate Amino Transf 12 U/L (AST/SGOT) Alanine Aminotransferase 19 U/L (ALT/SGPT) Alkaline Phosphatase 91 U/L Total Protein 8.0 GM/DL Albumin 3.7 GM/DL [facility] Medical Decision Making Medical Screen Exam Complete: Yes Emergency Medical Condition: Yes Medical Record Reviewed: Yes Interpretation(s) CT the abdomen and pelvis reveals no evidence of acute abdominal or pelvic process. 2 cm left ovarian cyst. Laboratory Tests Test 01/14/17 14:23 White Blood Count 19.2 TH/MM3 Red Blood Count 4.03 MIL/MM3 Hemoglobin 12.5 GM/DL Hematocrit 37.5 % Mean Corpuscular Volume 93.1 FL Mean Corpuscular Hemoglobin 31.1 PG Mean Corpuscular Hemoglobin 33.4 % Concent Red Cell Distribution Width 13.0 % Platelet Count 405 TH/MM3 Mean Platelet Volume 8.1 FL Neutrophils (%) (Auto) 81.7 % Lymphocytes (%) (Auto) 9.8 % Monocytes (%) (Auto) 6.7 % Eosinophils (%) (Auto) 0.9 % Basophils (%) (Auto) 0.9 % Neutrophils # (Auto) 15.6 TH/MM3 Lymphocytes # (Auto) 1.9 TH/MM3 Monocytes # (Auto) 1.3 TH/MM3 Eosinophils # (Auto) 0.2 TH/MM3 Basophils # (Auto) 0.2 TH/MM3 CBC Comment DIFF FINAL Differential Comment Urine Collection Type CLEAN CATCH Urine Color YELLOW Urine Turbidity CLEAR Urine pH 5.5 Urine Specific [place] 1.012 Urine Protein NEG mg/dL Urine Glucose (UA) 250 mg/dL Urine Ketones NEG mg/dL Urine Occult Blood SMALL Urine Nitrite NEG Urine Bilirubin NEG Urine Leukocyte Esterase TRACE Urine RBC 0-3 /hpf Urine WBC 3-5 /hpf Urine Squamous Epithelial > 8 /hpf Cells Microscopic Urinalysis Comment CULT NOT INDICATED Urine Collection Time 14:23 Sodium Level 139 MEQ/L Potassium Level 3.8 MEQ/L Chloride Level 103 MEQ/L Carbon Dioxide Level 26.6 MEQ/L Anion Gap 9 MEQ/L Blood Urea Nitrogen 8 MG/DL Creatinine 0.67 MG/DL Estimat Glomerular Filtration 106 ML/MIN Rate Random Glucose 99 MG/DL Calcium Level 9.3 MG/DL Total Bilirubin 0.4 MG/DL Aspartate Amino Transf 12 U/L (AST/SGOT) Alanine Aminotransferase 19 U/L (ALT/SGPT) Alkaline Phosphatase 91 U/L Total Protein 8.0 GM/DL Albumin 3.7 GM/DL Differential Diagnosis Differential diagnosis includes postoperative complication, surgical incision tear, hernia, perforated vaginal cuff, postoperative pain, neuralgia. Narrative Course IV was established, labs are drawn and sent, and the patient was placed on cardiac telemetry monitoring and continuous pulse oximetry monitoring. A pelvic exam was completed in the presence of a female nurse, no obvious perforated vaginal cuff. However, patient did have significant pain, therefore , was administered morphine, Zofran, and IV fluids. CT of the abdomen and pelvis was ordered. The patient's white count was mildly elevated at 19.2. I reviewed the patient's operative report that was performed by Dr. Dick Lipscomb on January 06, 2017. The patient had a total laparoscopic hysterectomy with removal of fragmented Essure device, cystoscopy with catheter, and right ovarian cystectomy. The patient did have blood work that was performed on January 07, 2017, her white count at that time was 15.03. UA was negative except for occasional bacteria. Therefore, I'll call was placed to the patient's industrial relations representative at 4:06 PM. I discussed the patient with Dr. Lipscomb at 4:40 PM who recommends that the patient follow-up in the [place] office tomorrow that opens at 8:30 AM with Maranda. The patient will be provided a copy of her CT results, lab results, and a prescription for pain medications. She is advised to follow up as directed tomorrow. Diagnosis Primary Impression: Pelvic pain Additional Impression: Postoperative pain Patient Instructions: General Instructions, Narcotic given in the ED Additional Instructions: Please provide a patient a copy of her CT results and lab results at discharge. Follow-up at the [place] office tomorrow that opens at 8:30 AM with Maranda. Return if symptoms worsen or progress. Med/Other Pt SpecificInfo: Prescription(s) given Scripts Hydrocodone-Acetaminophen ([place])5-325 mg Tab1 Tab PO Q6H PRN (PAIN) #15 TAB Ref 0 Prov:Drew Williamson MD 01/14/17 Disposition: 01 DISCHARGE HOME Condition: Stable Drew Williamson MD January 14, 2017 14:05
[2017-01-14] MEDS ORDERED: SODIUM CHLOR 0.9% 1000 ML INJ 1,000 ML IV SCH (14:11)
[2017-01-14] MEDS ORDERED: SODIUM CHLORIDE 0.9% FLUSH 10 ML FLUSH IV FLUSH PRN (14:15)
[2017-01-14] MEDS ORDERED: MORPHINE SULFATE 4 MG/ML INJ IV PUSH ONE ×2 (14:15→16:15)
[2017-01-14] MEDS ORDERED: ONDANSETRON HCL 4 MG/2 ML VIAL IVP ONE (14:15)
[2017-01-14 14:29] VITALS: O2SAT 98
[2017-01-14 14:32] LABS: AUTOMATED NEUTROPHIL # 15.6 TH/MM3 (1.8-7.7); BASOPHIL # 0.2 TH/MM3 (0-0.2); BASOPHIL % 0.9 % (0.0-2.0); BLOOD, URINE SMALL (NEG); EOSINOPHIL # 0.2 TH/MM3 (0-0.4); EOSINOPHIL % 0.9 % (0.0-4.0); GLUCOSE,URINE 250 mg/dL (NEG); HEMATOCRIT 37.5 % (35.0-46.0); KETONE, URINE NEG (NEG); LYMPH % 9.8 % (9.0-44.0); LYMPHOCYTE # 1.9 TH/MM3 (1.0-4.8); MEAN CELL VOLUME 93.1 FL (80.0-100.0); MEAN CORPUSCULAR HEMOGLOBIN 31.1 PG (27.0-34.0); MEAN CORPUSCULAR HGB CONC 33.4 % (32.0-36.0); MONO % 6.7 % (0.0-8.0); NEUT % 81.7 % (16.0-70.0); NITRITE,URINE NEG (NEG); PH, URINE 5.5 (5.0-8.5); PLATELET COUNT 405 TH/MM3 (150-450); RED BLOOD COUNT 4.03 MIL/MM3 (4.00-5.30); WHITE BLOOD COUNT 19.2 TH/MM3 (4.0-11.0)
[2017-01-14 14:35] LABS: HEMO FLAGS DIFF FINAL
[2017-01-14 14:40] LABS: CHLORIDE 103 MEQ/L (98-107); POTASSIUM 3.8 MEQ/L (3.5-5.1); SODIUM (NA) 139 MEQ/L (136-145)
[2017-01-14 14:42] LABS: METHOD OF COLLECTION CLEAN CATCH; URINE COLOR YELLOW (YELLW/STRAW)
[2017-01-14 14:43] LABS: ANION GAP 9 MEQ/L (5-15); BICARBONATE 26.6 MEQ/L (21.0-32.0); COMMENT (UR) CULT NOT INDICATED; CULTURE IF INDICATED CULT NOT INDICATED; RBC, URINE 0-3 /hpf (0-3); SQUAMOUS EPITHELIAL CELL URINE > 8 /hpf (0-5)
[2017-01-14 14:44] LABS: BLOOD UREA NITROGEN 8 MG/DL (7-18)
[2017-01-14 14:46] LABS: ALT (GPT) 19 U/L (10-53)
[2017-01-14 14:47] LABS: AST (GOT) 12 U/L (15-37); GLOMERULAR FILTRATION RATE 106 ML/MIN (>89)
[2017-01-14 14:48] LABS: TOTAL BILIRUBIN ADULT 0.4 MG/DL (0.2-1.0)
[2017-01-14 14:49] LABS: ALKALINE PHOSPHATASE 91 U/L (45-117)
--- NOTE | 2017-01-14 16:00 | RADHPO ---
EXAM DATE/TIME: 01/14/2017 14:52 [facility] COMPARISON: No previous studies available for comparison. INDICATIONS : Lower pelvic pain after lifting her son and feeling a pop in her lower abdomen. Hy sterectomy 01/06/17. ORAL CONTRAST: No oral contrast ingested. RADIATION DOSE: 17.59 CTDIvol (mGy) MEDICAL HISTORY : None SURGICAL HISTORY : Hysterectomy. ENCOUNTER: Initial ACUITY: 1 day PAIN SCALE: 7/10 LOCATION: lower quadrant TECHNIQUE: Volumetric scanning of the abdomen and pelvis was performed. Using automated exposure control and adjustment of the mA and/or kV according to patient size, radiation dose was kept as low as reasonably achievable to obtain optimal diagnostic quality images. FINDINGS: LOWER LUNGS: The visualized lower lungs are clear. LIVER: Homogeneous density without lesion. There is no dilation of the biliary tree. No calcifi ed gallstones. SPLEEN: Normal size without lesion. PANCREAS: Within normal limits. KIDNEYS: Normal in size and shape. There is no mass, stone, or hydronephrosis. ADRENAL GLANDS: Within normal limits. VASCULAR: There is no aortic aneurysm. BOWEL/MESENTERY: The stomach, small bowel, and colon demonstrate no acute abnormality. There is no free intraperitoneal air or fluid. ABDOMINAL WALL: Within normal limits. RETROPERITONEUM: There is no lymphadenopathy. BLADDER: No wall thickening or mass. REPRODUCTIVE: There is a single simple cyst in the left kidney measuring 2 cm. INGUINAL: There is no lymphadenopathy or hernia. MUSCULOSKELETAL: Within normal limits for patient age. CONCLUSION: 1. No evidence of acute abdominal or pelvic process. 2 cm left ovarian cyst Gideon Earl MD on January 14, 2017 at 15:56 Board Certified Radiologist. This report was verified electronically.
[2017-01-14 16:06] VITALS: BP 142/70; PULSE 76; RESP 18; O2SAT 98
[2017-01-14] MEDS ORDERED: KETOROLAC TROMETHAMINE 30 MG/ML (IVP) VIAL IV PUSH ONE (16:15)
[2017-01-14 16:40] VITALS: BP 140/70; PULSE 85; RESP 18; O2SAT 99
[2017-01-14] MEDS ORDERED: NORC5TAB PO (16:47)
[2017-02-12] MEDS ORDERED: BUTA1CAP PO (10:44)
[2017-02-12] MEDS ORDERED: RANI150C PO (10:44)
[2017-02-12] MEDS ORDERED: TOPA50TA7 PO (10:44)
[2017-02-27] MEDS ORDERED: HYDR50CA PO (11:18)
== END 2017-01-14 17:05 | disposition home or self-care (01) ==
LOC: PHED 13:43
DX: R10.2 Pelvic and perineal pain (principal); G89.18 Other acute postprocedural pain; Z72.0 Tobacco use
CPT/HCPCS: 74176; 80053; 81001; 85025; 96361; 96374; 96375; 96376; 99284; J2270; J2405; J7030

== ENCOUNTER 2017-04-10 19:23 | Emergency (ER) | payer MEDICAID ==
[~2017-04-10] VITALS: Ht 160 cm; Wt 79.0 kg
[~2017-04-10 19:23] MED LIST changes: +BUTA1CAP PO; +NORT10CA PO; +RANI150C PO; -RANI150T PO
[2017-04-10 19:53] VITALS: BP 144/91; PULSE 92; RESP 18; TEMP 99.1; O2SAT 99
[2017-04-10 21:14] LABS: BLOOD, URINE NEG (NEG); GLUCOSE,URINE NEG (NEG); KETONE, URINE NEG (NEG); NITRITE,URINE NEG (NEG); PH, URINE 5.5 (5.0-8.5)
[2017-04-10 21:24] LABS: AUTOMATED NEUTROPHIL # 15.2 TH/MM3 (1.8-7.7); BASOPHIL # 0.1 TH/MM3 (0-0.2); BASOPHIL % 0.4 % (0.0-2.0); EOSINOPHIL # 0.1 TH/MM3 (0-0.4); EOSINOPHIL % 0.6 % (0.0-4.0); HEMATOCRIT 35.4 % (35.0-46.0); HEMO FLAGS DIFF FINAL; LYMPH % 11.1 % (9.0-44.0); LYMPHOCYTE # 2.1 TH/MM3 (1.0-4.8); MEAN CELL VOLUME 91.2 FL (80.0-100.0); MEAN CORPUSCULAR HEMOGLOBIN 32.5 PG (27.0-34.0); MEAN CORPUSCULAR HGB CONC 35.7 % (32.0-36.0); MONO % 5.3 % (0.0-8.0); NEUT % 82.6 % (16.0-70.0); PLATELET COUNT 324 TH/MM3 (150-450); RED BLOOD COUNT 3.89 MIL/MM3 (4.00-5.30); RED CELL DISTRIBUTION WIDTH 12.7 % (11.6-17.2); WHITE BLOOD COUNT 18.5 TH/MM3 (4.0-11.0)
[2017-04-10 21:28] LABS: URINE COLOR STRAW (YELLW/STRAW)
[2017-04-10 21:29] LABS: BACTERIA, URINE FEW /hpf; COMMENT (UR) CULT NOT INDICATED; CULTURE IF INDICATED CULT NOT INDICATED; RBC, URINE 0-2 /hpf (0-3); SQUAMOUS EPITHELIAL CELL URINE > 8 /hpf (0-5); WBC, URINE 0-2 /hpf (0-5)
--- NOTE | 2017-04-10 21:30 | PD ---
HPI Chief Complaint: Abdominal Pain Time Seen by Provider: 21:26 Travel History International Travel<30 days: No Contact w/Intl Traveler<30days: No Traveled to known affect area: No History of Present Illness HPI 26-year-old female presents to the emergency department for complaint of 2 days of right lower quadrant abdominal pain crampy in nature 8/10 in intensity associated with nausea and vomiting. No hematemesis no coffee-ground emesis no bilious emesis. No diarrhea or constipation. No melena or hematochezia. No dysuria frequency urgency or flank pain also no hematuria. No history of fever or chills. No anorexia. Patient is status post hysterectomy and salpingectomy. No reported vaginal bleeding or vaginal discharge. Patient has history of ovarian cyst. Patient is unable to identify exacerbating or alleviating factors although this does note that pain is constant worsened with palpation and does exacerbate with ambulation. PFSH Past Medical History Narrative Medical [place] HFR kidney stones migraines 11 para 2 AB 9 Blood Disorders: Yes (mthfr) Diminished Hearing: Yes (NO HEARING LEFT EAR) Medical other: Yes (MTHFR) Migraines: Yes ?: Not LMP: NOVEMBER 29 : 11 Para: 2 Miscarriage: 9 Past Surgical History Gynecologic Surgery: Yes (coils in falopian tubes) Hysterectomy: Yes Social History Alcohol Use: Yes (OCCASSIONALLY) Tobacco Use: Yes (1/2 PPD) Substance Use: No Allergies-Medications (Allergen,Severity, Reaction): Coded Allergies: Codeine (Verified Allergy, Unknown, 04/10/17) Reported Meds & Prescriptions Reported Meds & Active Scripts Active Lortab (Hydrocodone-Acetaminophen) 5-325 Mg Tab 1 Tab PO Q6H PRN Reported Nortriptyline (Nortriptyline HCl) 10 Mg Cap 10 Mg PO TID Fioricet (Wsqwiyzdtp-Wnaftrwtzbsaq-Kmhctmtl) 50-300-40 Mg Cap 1 Cap PO Q4H PRN Review of Systems Except as stated in HPI: all other systems reviewed are Neg General / Constitutional: No: Fever, Chills HENT: No: Congestion Cardiovascular: No: Chest Pain or Discomfort Respiratory: No: Shortness of Breath Gastrointestinal: Positive: Nausea, Vomiting, Abdominal Pain Genitourinary: No: Dysuria, Flank Pain Musculoskeletal: No: Myalgias, Arthralgias Skin: No Rash Neurologic: No: Weakness Psychiatric: No: Anxiety Hematologic/Lymphatic: No: Lymph Node Enlargement Physical Exam Narrative GENERAL: Well-developed well-nourished female in no acute distress no respiratory distress SKIN: Warm and dry. HEAD: Normocephalic. EYES: No scleral icterus. No injection or drainage. NECK: Supple, trachea midline. No JVD or lymphadenopathy. CARDIOVASCULAR: Regular rate and rhythm without murmurs, gallops, or rubs. RESPIRATORY: Breath sounds equal bilaterally. No accessory muscle use. GASTROINTESTINAL: Abdomen soft, right lower quadrant tenderness to palpation with voluntary guarding without rebound, nondistended. Pelvic: patient declines MUSCULOSKELETAL: No cyanosis, or edema. BACK: Nontender without obvious deformity. No CVA tenderness. Data Data Last Documented VS Vital Signs Date Time Temp Pulse Resp B/P Pulse Ox O2 Delivery O2 Flow Rate FiO2 04/11/17 01:38 131/72 97 04/11/17 00:48 18 Room Air 04/11/17 00:47 55 04/10/17 23:12 98.7 Orders Urinalysis - C+S If Indicated (04/10/17 21:06) Complete Blood Count With Diff (04/10/17 21:15) Comprehensive Metabolic Panel (04/10/17 21:15) Iv Access Insert/Monitor (04/10/17 21:15) Oxygen Administration (04/10/17 21:15) Oximetry (04/10/17 21:15) Lipase (04/10/17 21:15) Ct Abd/Pel W Iv Contrast(Rout) (04/10/17 ) Morphine Inj (Morphine Inj) (04/10/17 21:45) Ondansetron Inj (Zofran Inj) (04/10/17 21:45) Sodium Chlor 0.9% 1000 Ml Inj (Ns 1000 M (04/10/17 21:45) NPO (04/10/17 21:31) Morphine Inj (Morphine Inj) (04/10/17 23:15) Ondansetron Inj (Zofran Inj) (04/10/17 23:15) Sodium Chlor 0.9% 1000 Ml Inj (Ns 1000 M (04/10/17 23:15) Iohexol 350 Inj (Omnipaque 350 Inj) (04/10/17 23:38) Ketorolac Inj (Toradol Inj) (04/11/17 00:30) Labs Laboratory Tests Test 04/10/17 04/10/17 21:00 21:15 Urine Color STRAW Urine Turbidity CLEAR Urine pH 5.5 Urine Specific [place] 1.010 Urine Protein NEG mg/dL Urine Glucose (UA) NEG mg/dL Urine Ketones NEG mg/dL Urine Occult Blood NEG Urine Nitrite NEG Urine Bilirubin NEG Urine Leukocyte Esterase NEG Urine RBC 0-2 /hpf Urine WBC 0-2 /hpf Urine Squamous Epithelial > 8 /hpf Cells Urine Bacteria FEW /hpf Microscopic Urinalysis Comment CULT NOT INDICATED White Blood Count 18.5 TH/MM3 Red Blood Count 3.89 MIL/MM3 Hemoglobin 12.6 GM/DL Hematocrit 35.4 % Mean Corpuscular Volume 91.2 FL Mean Corpuscular Hemoglobin 32.5 PG Mean Corpuscular Hemoglobin 35.7 % Concent Red Cell Distribution Width 12.7 % Platelet Count 324 TH/MM3 Mean Platelet Volume 8.1 FL Neutrophils (%) (Auto) 82.6 % Lymphocytes (%) (Auto) 11.1 % Monocytes (%) (Auto) 5.3 % Eosinophils (%) (Auto) 0.6 % Basophils (%) (Auto) 0.4 % Neutrophils # (Auto) 15.2 TH/MM3 Lymphocytes # (Auto) 2.1 TH/MM3 Monocytes # (Auto) 1.0 TH/MM3 Eosinophils # (Auto) 0.1 TH/MM3 Basophils # (Auto) 0.1 TH/MM3 CBC Comment DIFF FINAL Differential Comment Sodium Level 139 MEQ/L Potassium Level 3.8 MEQ/L Chloride Level 106 MEQ/L Carbon Dioxide Level 25.9 MEQ/L Anion Gap 7 MEQ/L Blood Urea Nitrogen 14 MG/DL Creatinine 0.72 MG/DL Estimat Glomerular Filtration 98 ML/MIN Rate Random Glucose 97 MG/DL Calcium Level 8.9 MG/DL Total Bilirubin 0.2 MG/DL Aspartate Amino Transf 20 U/L (AST/SGOT) Alanine Aminotransferase 27 U/L (ALT/SGPT) Alkaline Phosphatase 88 U/L Total Protein 8.0 GM/DL Albumin 4.1 GM/DL Lipase 87 U/L MDM Medical Decision Making Medical Screen Exam Complete: Yes Emergency Medical Condition: Yes Medical Record Reviewed: Yes Interpretation(s) UA: wnl Last Impressions Abdomen/Pelvis CT 04/10/17 0000 Signed Impressions: Service Date/Time: Monday, April 10, 2017 23:34 - CONCLUSION: 1. No acute inflammatory process. 2. No bowel obstruction. Darin Carlin MD CBC & BMP Diagram 04/10/17 21:15 Vital Signs Date Time Temp Pulse Resp B/P Pulse Ox O2 Delivery O2 Flow Rate FiO2 04/11/17 00:48 18 97 Room Air 04/11/17 00:47 55 18 121/86 99 Room Air 04/10/17 23:52 16 04/10/17 23:21 99 Room Air 04/10/17 23:12 98.7 73 18 120/60 100 Room Air 04/10/17 22:19 18 04/10/17 21:40 75 18 132/76 97 Room Air 04/10/17 19:53 99.1 92 18 144/91 99 Differential Diagnosis Abdominal pain, appendicitis, ovarian torsion, UTI, pyelonephritis, abscess, diverticulitis Narrative Course IV access obtained specimens collected and sent for resulting Patient administered IV fluids Zofran and morphine sulfate for pain Patient waiting on imaging results and lab values resulted patient identified to have leukocytosis of 18,000 with left shift; metabolic panel within normal limits; urinalysis no acute abnormality Patient declined pelvic exam Patient reports feeling clinically improved waiting on CT results Lab values resulted patient is clinically improved CT abdomen and pelvis reveals no acute intra-abdominal or pelvic abnormality. No free fluid. No perforation. Discussed with patient pelvic exam again patient does not want to go to pelvic exam she states that she does not feel is necessary and this was discussed with patient. Patient declined pelvic exam. At this point time patient is clinically improved symptomatically improved and appears stable for outpatient management is unclear as to the actual source of her leukocytosis patient is encouraged to monitor temperature closely take acetaminophen as needed for fever and return to the emergency department if fever should develop. Patient is otherwise to follow-up with her primary care provider return to the emergency department for any concerns or change in condition use. Diagnosis Primary Impression: Abdominal pain Qualified Code: R10.30 - Lower abdominal pain Referrals: Primary Care Physician 2 days Patient Instructions: Narcotic given in the ED, General Instructions Additional Instructions: Increase fluid hydration Take ibuprofen/Advil/Motrin 600 mg as often as every 6 hours as needed for pain associated with inflammation Follow-up with your primary care provider on Thursday return to the emergency department for fever pain vomiting or any concerns Med/Other Pt SpecificInfo: Prescription(s) given Scripts Hydrocodone-Acetaminophen (Lortab)5-325 Mg Tab1 Tab PO Q6H PRN (PAIN) #7 TAB Ref 0 Prov:Ara Ordoñez MD 04/11/17 Disposition: 01 DISCHARGE HOME Condition: Stable Ara Ordoñez MD Apr 10, 2017 21:30
[2017-04-10 21:33] LABS: CHLORIDE 106 MEQ/L (98-107); POTASSIUM 3.8 MEQ/L (3.5-5.1); SODIUM (NA) 139 MEQ/L (136-145)
[2017-04-10 21:38] LABS: ANION GAP 7 MEQ/L (5-15); BICARBONATE 25.9 MEQ/L (21.0-32.0); BLOOD UREA NITROGEN 14 MG/DL (7-18)
[2017-04-10 21:40] VITALS: BP 132/76; PULSE 75; RESP 18; O2SAT 97
[2017-04-10 21:40] LABS: ALT (GPT) 27 U/L (10-53)
[2017-04-10 21:41] LABS: AST (GOT) 20 U/L (15-37); GLOMERULAR FILTRATION RATE 98 ML/MIN (>89)
[2017-04-10 21:42] LABS: TOTAL BILIRUBIN ADULT 0.2 MG/DL (0.2-1.0)
[2017-04-10 21:43] LABS: ALKALINE PHOSPHATASE 88 U/L (45-117)
[2017-04-10] MEDS ORDERED: ONDANSETRON HCL 4 MG/2 ML VIAL IV PUSH ONE ×2 (21:45→23:15)
[2017-04-10] MEDS ORDERED: MORPHINE SULFATE 8 MG/ML INJ IV PUSH ONE ×2 (21:45→23:15)
[2017-04-10] MEDS ORDERED: SODIUM CHLOR 0.9% 1000 ML INJ 1,000 ML IV ONE ×2 (21:45→23:15)
[2017-04-10 23:12] VITALS: BP 120/60; PULSE 73; RESP 18; TEMP 98.7; O2SAT 100
[2017-04-10] MEDS ORDERED: IOHEXOL 350 MG/ML 10 ML VIAL (for RAD DIAG) IV ONE (23:38)
--- NOTE | 2017-04-11 00:13 | RADRPT ---
EXAM DATE/TIME: 04/10/2017 23:34 [facility] COMPARISON: CT ABDOMEN & PELVIS W/O CONTRAST, January 14, 2017, 14:52. INDICATIONS : Nausea and vomiting, abdominal pain for 2 days. IV CONTRAST: 96 cc Omnipaque 350 (iohexol) IV ORAL CONTRAST: No oral contrast ingested. RADIATION DOSE: 10.50 CTDIvol (mGy) MEDICAL HISTORY : None SURGICAL HISTORY : Hysterectomy. ENCOUNTER: Initial ACUITY: 2 days PAIN SCALE: 7/10 LOCATION: Right lower quadrant TECHNIQUE: Volumetric scanning of the abdomen and pelvis was performed. Using automated exposure control and ad justment of the mA and/or kV according to patient size, radiation dose was kept as low as reasonably achievable to obtain optimal diagnostic quality images. DICOM format image data is available electro nically for review and comparison. FINDINGS: LOWER LUNGS: The visualized lower lungs are clear. LIVER: Homogeneous density without lesion. There is no dilation of the biliary tree. No calcified gallston es. SPLEEN: Normal size without lesion. PANCREAS: Within normal limits. KIDNEYS: Normal in size and shape. There is no mass, stone or hydronephrosis. ADRENAL GLANDS: Within normal limits. VASCULAR: There is no aortic aneurysm. BOWEL/MESENTERY: The stomach, small bowel, and colon demonstrate no acute abnormality. There is no free intraperitone al air or fluid. ABDOMINAL WALL: Within normal limits. RETROPERITONEUM: There is no lymphadenopathy. BLADDER: No wall thickening or mass. REPRODUCTIVE: Within normal limits. INGUINAL: There is no lymphadenopathy or hernia. MUSCULOSKELETAL: Within normal limits for patient age. CONCLUSION: 1. No acute inflammatory process. 2. No bowel obstruction. Darin Carlin MD on April 11, 2017 at 0:10 Board Certified Radiologist. This report was verified electronically.
[2017-04-11] MEDS ORDERED: KETOROLAC TROMETHAMINE 30 MG/ML (IVP) VIAL IV PUSH ONE (00:30)
[2017-04-11 00:47] VITALS: BP 121/86; PULSE 55; RESP 18; O2SAT 99
[2017-04-11 00:48] VITALS: RESP 18; O2SAT 97
[2017-04-11] MEDS ORDERED: HYDR-3533 PO (01:04)
[2017-04-11 01:38] VITALS: BP 131/72
[2017-04-15] MEDS ORDERED: RANI150T PO (07:56)
== END 2017-04-11 01:37 | disposition home or self-care (01) ==
LOC: PHED 19:23
DX: R10.31 Right lower quadrant pain (principal); R11.2 Nausea with vomiting, unspecified
CPT/HCPCS: 74177; 80053; 81001; 83690; 85025; 96374; 96375; 96376; 99285; J1885; J2270; J2405; J7030; Q9967

== ENCOUNTER 2017-05-03 19:46 | Emergency (ER) | payer MEDICAID ==
[~2017-05-03] VITALS: Ht 160 cm; Wt 79.0 kg
[~2017-05-03 19:46] MED LIST changes: -RANI150C PO; +RANI150T PO
[2017-05-03 20:08] VITALS: BP 133/79; PULSE 70; RESP 18; TEMP 98.8; O2SAT 98
[2017-05-03] MEDS ORDERED: METO10TA PO (20:25)
--- NOTE | 2017-05-03 20:43 | PD ---
HPI Chief Complaint: GI Complaint Time Seen by Provider: 20:28 Travel History International Travel<30 days: No Contact w/Intl Traveler<30days: No Traveled to known affect area: No History of Present Illness HPI The patient is a 26-year-old female that is a frequent visitor here to the emergency department for abdominal pain. She is here almost on a monthly basis for this and had a CT scan last month which was normal. She denies any significant use of alcohol or aspirin but does take Motrin frequently and took some today. She had slight coffee grounds in the vomitus today. She denies any diarrhea. She denies any fever. She has had a hysterectomy and cannot be . PFSH Past Medical History Blood Disorders: Yes (mthfr) Diminished Hearing: Yes (NO HEARING LEFT EAR) Migraines: Yes Tetanus Vaccination: Unknown Influenza Vaccination: Yes ?: Not : 11 Para: 2 Miscarriage: 9 Past Surgical History Gynecologic Surgery: Yes (coils in falopian tubes) Hysterectomy: Yes (2017) Family History Family Breast Cancer: Yes (maternal great grandmother) Social History Alcohol Use: Yes (OCCASSIONALLY) Tobacco Use: Yes (1/2 PPD) Substance Use: No Allergies-Medications (Allergen,Severity, Reaction): Coded Allergies: codeine (Verified Allergy, Unknown, 05/03/17) Reported Meds & Prescriptions Reported Meds & Active Scripts Active Lortab (Hydrocodone-Acetaminophen) 5-325 Mg Tab 1 Tab PO Q6H PRN Omeprazole 20 Mg Tab 20 Mg PO DAILY Ranitidine (Ranitidine HCl) 150 Mg Tab 150 Mg PO DAILY Reported Metoclopramide (Metoclopramide HCl) 10 Mg Tab 10 Mg PO QID PRN Nortriptyline (Nortriptyline HCl) 10 Mg Cap 10 Mg PO TID Fioricet (Kdxlaqeohv-Dknftrtgmjbwk-Zqwqhjez) 50-300-40 Mg Cap 1 Cap PO Q4H PRN Review of Systems Except as stated in HPI: all other systems reviewed are Neg Physical Exam Narrative GENERAL: The patient is alert, oriented 3 in moderate apparent distress with her midline epigastric discomfort. Her vital signs are normal. She does appear moderately dehydrated. SKIN: Focused skin assessment warm/dry. No skin rash is seen. HEAD: Atraumatic. Normocephalic. EYES: Pupils equal and round. No scleral icterus. No injection or drainage. ENT: No nasal bleeding or discharge. Mucous membranes pink and moist. NECK: Trachea midline. No JVD. CARDIOVASCULAR: Regular rate and rhythm. No murmur appreciated. RESPIRATORY: No accessory muscle use. Clear to auscultation. Breath sounds equal bilaterally. GASTROINTESTINAL: Abdomen soft, with tenderness to direct palpation in the midline epigastrium, nondistended. Hepatic and splenic margins not palpable. No guarding or rebound is present. MUSCULOSKELETAL: No obvious deformities. No clubbing. No cyanosis. No edema. NEUROLOGICAL: Awake and alert. No obvious cranial nerve deficits. Motor grossly within normal limits. Normal speech. PSYCHIATRIC: Appropriate mood and affect; insight and judgment normal. Data Data Last Documented VS Vital Signs Date Time Temp Pulse Resp B/P (MAP) Pulse Ox O2 Delivery O2 Flow Rate FiO2 05/03/17 22:31 78 16 157/97 (117) 99 Room Air 05/03/17 20:08 98.8 Orders Orders Complete Blood Count With Diff (05/03/17 20:43) Comprehensive Metabolic Panel (05/03/17 20:43) Lipase (05/03/17 20:43) Urinalysis - C+S If Indicated (05/03/17 20:43) Iv Access Insert/Monitor (05/03/17 20:43) Ecg Monitoring (05/03/17 20:43) Oximetry (05/03/17 20:43) Pantoprazole Inj (Protonix Inj) (05/03/17 20:45) Sodium Chloride 0.9% Flush (Ns Flush) (05/03/17 20:45) Famotidine Inj (Pepcid Inj) (05/03/17 20:45) Al-Mag Hy-Si 40-40-4 Mg/Ml Liq (Mag-Al P (05/03/17 20:45) Lidocaine 2% Viscous (Xylocaine 2% Visco (05/03/17 20:45) Sodium Chlor 0.9% 1000 Ml Inj (Ns 1000 M (05/03/17 20:45) Ondansetron Inj (Zofran Inj) (05/03/17 20:45) Hydromorphone Pf Inj (Dilaudid Pf Inj) (05/03/17 20:45) Hydromorphone Pf Inj (Dilaudid Pf Inj) (05/03/17 22:30) Labs Laboratory Tests Test 05/03/17 20:40 05/03/17 21:00 White Blood Count 12.9 TH/MM3 Red Blood Count 4.23 MIL/MM3 Hemoglobin 13.6 GM/DL Hematocrit 39.6 % Mean Corpuscular Volume 93.6 FL Mean Corpuscular Hemoglobin 32.0 PG Mean Corpuscular Hemoglobin Concent 34.2 % Red Cell Distribution Width 13.1 % Platelet Count 333 TH/MM3 Mean Platelet Volume 8.4 FL Neutrophils (%) (Auto) 75.6 % Lymphocytes (%) (Auto) 16.7 % Monocytes (%) (Auto) 6.5 % Eosinophils (%) (Auto) 1.0 % Basophils (%) (Auto) 0.2 % Neutrophils # (Auto) 9.9 TH/MM3 Lymphocytes # (Auto) 2.1 TH/MM3 Monocytes # (Auto) 0.8 TH/MM3 Eosinophils # (Auto) 0.1 TH/MM3 Basophils # (Auto) 0.0 TH/MM3 CBC Comment DIFF FINAL Differential Comment Blood Urea Nitrogen 23 MG/DL Creatinine 1.10 MG/DL Random Glucose 93 MG/DL Total Protein 8.0 GM/DL Albumin 3.9 GM/DL Calcium Level 8.6 MG/DL Alkaline Phosphatase 88 U/L Aspartate Amino Transf (AST/SGOT) 21 U/L Alanine Aminotransferase (ALT/SGPT) 29 U/L Total Bilirubin 0.2 MG/DL Sodium Level 137 MEQ/L Potassium Level 3.9 MEQ/L Chloride Level 103 MEQ/L Carbon Dioxide Level 26.0 MEQ/L Anion Gap 8 MEQ/L Estimat Glomerular Filtration Rate 60 ML/MIN Lipase 101 U/L Urine Color YELLOW Urine Turbidity SLIGHT Urine pH 6.0 Urine Specific [place] 1.027 Urine Protein NEG mg/dL Urine Glucose (UA) NEG mg/dL Urine Ketones NEG mg/dL Urine Occult Blood NEG Urine Nitrite NEG Urine Bilirubin NEG Urine Leukocyte Esterase NEG Urine RBC 0-3 /hpf Urine WBC 0-2 /hpf Urine Squamous Epithelial Cells 6-8 /hpf Urine Mucus FEW /lpf Microscopic Urinalysis Comment CULT NOT INDICATED MDM Medical Decision Making Medical Screen Exam Complete: Yes Emergency Medical Condition: Yes Medical Record Reviewed: Yes Interpretation(s) The CBC shows a white count of 12,900 with 76% neutrophils but is otherwise unremarkable. The complete metabolic profile shows a BUN of 23, creatinine 1.1 , GFR 60 but is otherwise normal. The lipase is normal. Urinalysis is normal except for a specific gravity of 1.027 and culture is not indicated. Differential Diagnosis Gastritis, ulcer pain, pancreatitis, electrolyte disorder, dehydration, anemia Narrative Course The patient appears to have mild to moderate dehydration with her elevated BUN and elevated specific gravity in the urine. She has been given 2 L of fluid. She will be given prescriptions for omeprazole and Lortab 5. She will also get a prescription for Phenergan. Diagnosis Primary Impression: Gastritis Additional Instructions: Take the nausea medicine every 6 hours to prevent nausea. Vomiting and would start the irritation of your stomach again and cause significant pain. Follow- up with her primary care physician as soon as possible. If worse, return to the emergency department. Med/Other Pt SpecificInfo: Prescription(s) given Scripts Promethazine (Phenergan) 25 Mg Tablet 25 MG PO Q6H Y for NAUSEA OR VOMITING, #30 TAB 0 Refills Prov: Denny Vogt MD 05/03/17 Hydrocodone-Acetaminophen (Lortab) 5-325 Mg Tab 1 TAB PO Q6H Y for PAIN, #28 TAB 0 Refills Prov: Denny Vogt MD 05/03/17 Omeprazole (Omeprazole) 20 Mg Tab 20 MG PO DAILY, #30 TAB 0 Refills Prov: Denny Vogt MD 05/03/17 Disposition: 01 DISCHARGE HOME Condition: Stable Denny Vogt MD May 03, 2017 20:43
[2017-05-03] MEDS ORDERED: LIDOCAINE VISCOUS 2% SOLN 15 ML UDC PO ONE (20:45)
[2017-05-03] MEDS ORDERED: SODIUM CHLORIDE 0.9% FLUSH 10 ML FLUSH IV FLUSH PRN (20:45)
[2017-05-03] MEDS ORDERED: PANTOPRAZOLE SODIUM 40 MG VIAL IVP ONE (20:45)
[2017-05-03] MEDS ORDERED: FAMOTIDINE 20 MG/2 ML VIAL IV PUSH ONE (20:45)
[2017-05-03] MEDS ORDERED: HYDROmorphone HCL PF 1 MG/ML VIAL IVP ONE ×2 (20:45→22:30)
[2017-05-03] MEDS ORDERED: ONDANSETRON HCL 4 MG/2 ML VIAL IV ONE (20:45)
[2017-05-03] MEDS ORDERED: ALUMINUM/MAGNESIUM/SIMETH 30 ML CUP PO ONE (20:45)
[2017-05-03 21:01] LABS: AUTOMATED NEUTROPHIL # 9.9 TH/MM3 (1.8-7.7); BASOPHIL % 0.2 % (0.0-2.0); EOSINOPHIL # 0.1 TH/MM3 (0-0.4); HEMATOCRIT 39.6 % (35.0-46.0); HEMO FLAGS DIFF FINAL; LYMPH % 16.7 % (9.0-44.0); LYMPHOCYTE # 2.1 TH/MM3 (1.0-4.8); MEAN CELL VOLUME 93.6 FL (80.0-100.0); MEAN CORPUSCULAR HGB CONC 34.2 % (32.0-36.0); MONO % 6.5 % (0.0-8.0); NEUT % 75.6 % (16.0-70.0); PLATELET COUNT 333 TH/MM3 (150-450); RED BLOOD COUNT 4.23 MIL/MM3 (4.00-5.30); RED CELL DISTRIBUTION WIDTH 13.1 % (11.6-17.2); WHITE BLOOD COUNT 12.9 TH/MM3 (4.0-11.0)
[2017-05-03 21:03] LABS: BLOOD, URINE NEG (NEG); GLUCOSE,URINE NEG (NEG); KETONE, URINE NEG (NEG); NITRITE,URINE NEG (NEG)
[2017-05-03 21:09] LABS: MUCUS URINE FEW /lpf (OCC); URINE COLOR YELLOW (YELLW/STRAW)
[2017-05-03 21:10] LABS: CHLORIDE 103 MEQ/L (98-107); POTASSIUM 3.9 MEQ/L (3.5-5.1); SODIUM (NA) 137 MEQ/L (136-145)
[2017-05-03 21:11] LABS: RBC, URINE 0-3 /hpf (0-3); WBC, URINE 0-2 /hpf (0-5)
[2017-05-03 21:13] LABS: ANION GAP 8 MEQ/L (5-15); BLOOD UREA NITROGEN 23 MG/DL (7-18)
[2017-05-03 21:13] LABS: COMMENT (UR) CULT NOT INDICATED; CULTURE IF INDICATED CULT NOT INDICATED
[2017-05-03] MEDS: SODIUM CHLOR 0.9% 1000 ML INJ 1,000 ML IV SCH ×2 (21:14→21:19)
[2017-05-03 21:16] LABS: ALT (GPT) 29 U/L (10-53); AST (GOT) 21 U/L (15-37); GLOMERULAR FILTRATION RATE 60 ML/MIN (>89)
[2017-05-03 21:17] LABS: TOTAL BILIRUBIN ADULT 0.2 MG/DL (0.2-1.0)
[2017-05-03 21:19] LABS: ALKALINE PHOSPHATASE 88 U/L (45-117)
[2017-05-03 21:23] VITALS: BP 147/87; PULSE 74; RESP 16; O2SAT 97; O2SAT 98
[2017-05-03] MEDS ORDERED: HYDR-3533 PO (22:26)
[2017-05-03] MEDS ORDERED: OMEP20TA PO (22:26)
[2017-05-03 22:31] VITALS: BP 157/97; PULSE 78; RESP 16; O2SAT 99
[2017-05-03] MEDS ORDERED: PROM25TA10 PO (22:39)
[2017-05-03 22:47] VITALS: RESP 18
== END 2017-05-03 22:54 | disposition home or self-care (01) ==
LOC: PHED 19:46
DX: K29.70 Gastritis, unspecified, without bleeding (principal); F17.210 Nicotine dependence, cigarettes, uncomplicated; H91.92 Unspecified hearing loss, left ear; Z90.710 Acquired absence of both cervix and uterus
CPT/HCPCS: 80053; 81001; 83690; 85025; 96361; 96374; 96375; 96376; 99284; C9113; J1170; J2405; J7030

== ENCOUNTER 2017-07-13 18:32 | Emergency (ER) | payer MEDICAID ==
[~2017-07-13] VITALS: Ht 160 cm; Wt 83.4 kg
[~2017-07-13 18:32] MED LIST changes: +HYDR-3533 PO; +METO10TA PO; +OMEP20TA93 PO; +PROM25TA10 PO
[2017-07-13 18:34] VITALS: BP 146/85; PULSE 89; RESP 15; TEMP 99.4; O2SAT 99
[2017-07-13] MEDS ORDERED: ONDANSETRON HCL 4 MG/2 ML VIAL IVP ONE (19:15)
[2017-07-13] MEDS ORDERED: MORPHINE SULFATE 4 MG/ML INJ IV PUSH ONE (19:15)
--- NOTE | 2017-07-13 19:18 | PD ---
HPI Chief Complaint: Abdominal pain Time Seen by Provider: 18:56 Travel History International Travel<30 days: No Contact w/Intl Traveler<30days: No Traveled to known affect area: No History of Present Illness HPI 27yo F with PMH of depression, chronic abdominal pain here with c/o lower abdominal pain for 5 days. Pain is lower abdomen, constant and waxes and wanes in severity. Associated with nausea. Said she was in the shower today and the pain was so bad she passed out and hit the front of her head. Denies any fever , visual changes, chest pain, sob, vomiting, dysuria, hematuria, focal weakness or numbness. PSH include hysterectomy. Pt has had 4 CT a/p this year for the abdominal pain. PFSH Past Medical History Blood Disorders: Yes (mthfr) Diminished Hearing: Yes (NO HEARING LEFT EAR) Migraines: Yes Tetanus Vaccination: Unknown ?: Not : 11 Para: 2 Miscarriage: 9 Past Surgical History Gynecologic Surgery: Yes (coils in falopian tubes) Hysterectomy: Yes (2016) Social History Alcohol Use: Yes (OCCASSIONALLY) Tobacco Use: Yes (1/2 PPD) Substance Use: No Allergies-Medications (Allergen,Severity, Reaction): Coded Allergies: codeine (Verified Allergy, Unknown, 07/13/17) Reported Meds & Prescriptions Reported Meds & Active Scripts Active Reported Fioricet (Znkcgsalcf-Oyndjbhelfkwx-Odhymagw) 50-300-40 Mg Cap 1 Cap PO Q4H PRN Review of Systems Except as stated in HPI: all other systems reviewed are Neg Physical Exam Narrative GENERAL: 27yo F in mild distress. SKIN: Focused skin assessment warm/dry. HEAD: Atraumatic. Normocephalic. EYES: Pupils equal and round. No scleral icterus. No injection or drainage. CARDIOVASCULAR: Regular rate and rhythm. No murmur appreciated. RESPIRATORY: No accessory muscle use. Clear to auscultation. Breath sounds equal bilaterally. GASTROINTESTINAL: Abdomen soft, +TTP lower abdomen diffusely. No rebound tenderness or guarding. MUSCULOSKELETAL: No obvious deformities. No clubbing. No cyanosis. No edema. NEUROLOGICAL: Awake and alert. No obvious cranial nerve deficits. Motor grossly within normal limits. Normal speech. PSYCHIATRIC: Appropriate mood and affect; insight and judgment normal. Data Data Last Documented VS Vital Signs Date Time Temp Pulse Resp B/P (MAP) Pulse Ox O2 Delivery O2 Flow Rate FiO2 07/13/17 19:52 Room Air 07/13/17 19:50 72 16 135/80 (98) 100 07/13/17 18:34 99.4 Orders Orders Complete Blood Count With Diff (07/13/17 19:05) Comprehensive Metabolic Panel (07/13/17 19:05) Lipase (07/13/17 19:05) Prothrombin Time / Inr (Pt) (07/13/17 19:05) Act Partial Throm Time (Ptt) (07/13/17 19:05) Urinalysis - C+S If Indicated (07/13/17 19:05) Morphine Inj (Morphine Inj) (07/13/17 19:15) Ondansetron Inj (Zofran Inj) (07/13/17 19:15) Ed Urine Pregnancytest Poc (07/13/17 19:05) Electrocardiogram (07/13/17 ) Labs Laboratory Tests Test 07/13/17 19:35 White Blood Count 10.0 TH/MM3 Red Blood Count 3.80 MIL/MM3 Hemoglobin 11.6 GM/DL Hematocrit 34.5 % Mean Corpuscular Volume 90.8 FL Mean Corpuscular Hemoglobin 30.6 PG Mean Corpuscular Hemoglobin Concent 33.7 % Red Cell Distribution Width 12.8 % Platelet Count 332 TH/MM3 Mean Platelet Volume 8.0 FL Neutrophils (%) (Auto) 70.1 % Lymphocytes (%) (Auto) 20.2 % Monocytes (%) (Auto) 7.9 % Eosinophils (%) (Auto) 1.4 % Basophils (%) (Auto) 0.4 % Neutrophils # (Auto) 7.1 TH/MM3 Lymphocytes # (Auto) 2.0 TH/MM3 Monocytes # (Auto) 0.8 TH/MM3 Eosinophils # (Auto) 0.1 TH/MM3 Basophils # (Auto) 0.0 TH/MM3 CBC Comment DIFF FINAL Differential Comment Prothrombin Time 10.0 SEC Prothromb Time International Ratio 0.9 RATIO Activated Partial Thromboplast Time 28.0 SEC Urine Color YELLOW Urine Turbidity SLIGHT Urine pH 6.0 Urine Specific [place] 1.014 Urine Protein NEG mg/dL Urine Glucose (UA) NEG mg/dL Urine Ketones NEG mg/dL Urine Occult Blood NEG Urine Nitrite NEG Urine Bilirubin NEG Urine Leukocyte Esterase NEG Urine WBC 0-2 /hpf Urine Squamous Epithelial Cells > 8 /hpf Microscopic Urinalysis Comment CULT NOT INDICATED Blood Urea Nitrogen 14 MG/DL Creatinine 0.87 MG/DL Random Glucose 88 MG/DL Total Protein 7.6 GM/DL Albumin 3.6 GM/DL Calcium Level 8.1 MG/DL Alkaline Phosphatase 79 U/L Aspartate Amino Transf (AST/SGOT) 16 U/L Alanine Aminotransferase (ALT/SGPT) 26 U/L Total Bilirubin LESS THAN 0.1 MG/DL Sodium Level 140 MEQ/L Potassium Level 3.5 MEQ/L Chloride Level 107 MEQ/L Carbon Dioxide Level 24.5 MEQ/L Anion Gap 9 MEQ/L Estimat Glomerular Filtration Rate 78 ML/MIN Lipase 92 U/L [facility] Medical Decision Making Medical Screen Exam Complete: Yes Emergency Medical Condition: Yes Interpretation(s) EKG: Sinus bradycardia at 59bpm. LAD. No ST segment elevation or depression. Differential Diagnosis IBS vs. colitis vs. enteritis Narrative Course 27yo F with chronic abdominal pain here for lower abdominal pain. Pt refused pelvic exam. Labs reviewed, no leukocytosis. CMP unremarkable. Lipase normal. UA showed positive squamous cell. Culture not indicated. Pt had hysterectomy this year. She was given morphine and zofran and reevaluated at bedside with improvement of pain. Tolerating PO. Pt is on her phone and not in distress. She has already had 4 CT a/p this year. Do not think she need a CT brain for her fall. She has no signs of trauma on her. GCS 15. No focal neurologic deficits. Pt has been observed in the ED. Diagnosis Primary Impression: Abdominal pain Qualified Codes: R10.30 - Lower abdominal pain, unspecified Patient Instructions: General Instructions Departure Forms: Tests/Procedures Additional Instructions: Please follow up with your surgeon and primary care physician in 2-3 days. Return to the ED if symptoms worsen. Med/Other Pt SpecificInfo: Prescription(s) given Scripts Acetaminophen (Tylenol) 325 Mg Tab 650 MG PO Q6H Y for PAIN SCALE 1 TO 4, #20 TAB 0 Refills Prov: Iman Alas 07/13/17 Disposition: 01 DISCHARGE HOME Condition: Stable Iman Alas Jul 13, 2017 19:18
[2017-07-13 19:46] LABS: AUTOMATED NEUTROPHIL # 7.1 TH/MM3 (1.8-7.7); BASOPHIL % 0.4 % (0.0-2.0); BLOOD, URINE NEG (NEG); EOSINOPHIL # 0.1 TH/MM3 (0-0.4); EOSINOPHIL % 1.4 % (0.0-4.0); GLUCOSE,URINE NEG (NEG); HEMATOCRIT 34.5 % (35.0-46.0); HEMO FLAGS DIFF FINAL; KETONE, URINE NEG (NEG); LYMPH % 20.2 % (9.0-44.0); MEAN CELL VOLUME 90.8 FL (80.0-100.0); MEAN CORPUSCULAR HEMOGLOBIN 30.6 PG (27.0-34.0); MEAN CORPUSCULAR HGB CONC 33.7 % (32.0-36.0); MONO % 7.9 % (0.0-8.0); NEUT % 70.1 % (16.0-70.0); NITRITE,URINE NEG (NEG); PLATELET COUNT 332 TH/MM3 (150-450); RED CELL DISTRIBUTION WIDTH 12.8 % (11.6-17.2)
[2017-07-13 19:50] VITALS: BP 135/80; PULSE 72; RESP 16; O2SAT 100
[2017-07-13 19:51] LABS: CHLORIDE 107 MEQ/L (98-107); POTASSIUM 3.5 MEQ/L (3.5-5.1); SODIUM (NA) 140 MEQ/L (136-145)
[2017-07-13 19:55] LABS: ANION GAP 9 MEQ/L (5-15); BICARBONATE 24.5 MEQ/L (21.0-32.0); BLOOD UREA NITROGEN 14 MG/DL (7-18)
[2017-07-13 19:57] LABS: ALT (GPT) 26 U/L (10-53); AST (GOT) 16 U/L (15-37); INTERNATIONAL NORMALIZED RATIO 0.9 RATIO
[2017-07-13 19:58] LABS: GLOMERULAR FILTRATION RATE 78 ML/MIN (>89)
[2017-07-13 19:59] LABS: TOTAL BILIRUBIN ADULT LESS THAN 0.1 MG/DL (0.2-1.0)
[2017-07-13 20:00] LABS: ALKALINE PHOSPHATASE 79 U/L (45-117)
[2017-07-13 20:05] LABS: URINE COLOR YELLOW (YELLW/STRAW)
[2017-07-13 20:06] LABS: COMMENT (UR) CULT NOT INDICATED; CULTURE IF INDICATED CULT NOT INDICATED; SQUAMOUS EPITHELIAL CELL URINE > 8 /hpf (0-5); WBC, URINE 0-2 /hpf (0-5)
[2017-07-13] MEDS ORDERED: TYLE325T PO (21:09)
[2017-07-13 21:34] VITALS: BP 138/75; PULSE 85; RESP 16; O2SAT 98
--- NOTE | 2017-07-14 14:16 | EKG ---
Date Performed: 07/13/2017 Time Performed: 20:28:55 PTAGE: 27 years EKG: SINUS BRADYCARDIA INCOMPLETE RIGHT BUNDLE BRANCH BLOCK BORDERLINE ECG PREVIOUS TRACING : 03/06/2016 21.35 Compared to prior tracing no significant change DOCTOR: Brooks Hernadez Interpretating Date/Time 07/14/2017 14:10:58
== END 2017-07-13 21:37 | disposition home or self-care (01) ==
LOC: PHED 18:32
DX: R10.30 Lower abdominal pain, unspecified (principal); G89.29 Other chronic pain; R00.1 Bradycardia, unspecified; I45.10 Unspecified right bundle-branch block
CPT/HCPCS: 80053; 81001; 83690; 84703; 85025; 85610; 85730; 93005; 96374; 96375; 99284; J2270; J2405